=== PATIENT | female | born 1955 | race Caucasian/White ===

== ENCOUNTER 2022-02-13 17:16 | Inpatient (IN) ==
[2022-02-13] MEDS ORDERED: SODIUM CHLORIDE 0.9% 1000ML 500 ML IV ONE (17:31)
--- NOTE | 2022-02-13 17:36 | Emergency Department Note ---
Impression & Plan Bilateral pulmonary embolism ED Provider Note Name: KEYLA PRUETT Age: 67 Sex: F Arrives Via: Walk-In Informant: Patient ED Provider: Rei Ortega MD Chief Complaint: Flank pain Impression: As per impressions above Medical Decision Making: Pleasant 67-year-old female with a history of anxiety/depression, dyslipidemia and a remote history of a PE following surgery 8 years ago. She arrives for evaluation of worsening right flank pain. On examination pain seems to be slightly higher than typical flank area and she does appear somewhat dyspneic/tachypneic. In the setting of recent travel back and forth to [place] I did feel that getting a CT PE study was warranted and will get CT of the abdomen pelvis along with this to rule out other acute findings. She fortunately is not hypoxic, hypotensive and is only mildly tachycardic with exertion. Labs are essentially unremarkable. CT does show what appears to be extensive clot burden but no clear evidence of heart strain per her report. Given the extensive findings I do feel that she would require hospitalization. She has no recent headache, head injury, black/bloody stools, epigastric disco mfort, GI bleed history or any other concerning bleeding risk. Patient is agreeable to starting heparin and understands the risks of doing so as well as options otherwise. I did get a hypercoagulable work-up on her as this is now the second time she has had PEs. Hospitalist was consulted for further management patient stable at time of hospitalization. I do not feel that she is a candidate for TNKase at this time given how currently stable she has. The CT of the abdomen pelvis does reveal some mild hydro on the right and questionable stone in the right lower pelvis. I think it is unlikely that this is acute renal colic secondary to ureteral stone in the setting of she clearly has massive PEs that are most likely cause of her discomfort. Furthermore she has no blood in her urine which does make stone a little less likely. Prior Medical Record and Triage/Nursing Notes reviewed by Me Additional history obtained from chart Differentials:PE, renal colic, biliary dysfunction, aortic pathology, infection, ischemia of bowel or lung, diverticulitis, PUD/GERD, acs amongst other pathologies considered. Vital Signs: reviewed and remarkable for mild tachy Interventions: nss bolus, heparin bolus/gtt Labs:Reviewed and remarkable for no significant abnormalities Imaging:See radiologist read on chart for CT PE and CT abdomen pelvis studies. Extensive right and some left pulmonary emboli. Abdomen pelvis reveals possible distal right ureteral stone with mild hydro- Cardiac/Tele Monitoring: Cardiac Monitoring: An Order was placed for continuous cardiac monitoring. The monitor shows a rate of 98 with a normal sinus rhythm. Consults:Dr Angeline Roblero Hospitalist Plan: Disposition:Hospitalization. Condition: Good History of Present Illness:67-year-old female arrives for evaluation of right flank pain. When discussing she actually points to the right lower lateral patient states the pain has been going on for about 3 weeks gradually worsening. She notes pain is now radiating into her right shoulder. Associated with shortness of breath and pain is severely worse with any deep inspiration. She denies any falls, trauma, injuries. She denies any other chest pains. She states she has no abdominal pain or any radiation to groin, low back or pelvis. She denies any rashes, fevers, other concerning signs or symptoms. She had no recent falls or injuries. Pain does seem to be little bit worse with movement as well but primarily the issues deep inspiration. She does have a history of a PE 8 years ago is no longer on any blood thinners this was following surgery. He does take aspirin 81 mg daily. Rest makes better and inspiration makes w orse. No medications prior to arrival however she did use diclofenac this morning with improvement. ROS: See above HPI for pertinent positives & negatives. A total of 10 systems reviewed and were otherwise negative. Past Medical History:PE, anxiety/depression, dyslipidemia Past Surgical History:Gallbladder removal, amongst others Family History:Father an [place], mother had a stroke, brother had cancer Social History:Recently moved to the area, previous smoker Home Medications:See Below Allergies:nkda Vitals:Blood Pressure: 114/69, Pulse 98, RR 16, T 36.8, O2 94% on RA Physical Exam: GENERAL: Patient is uncomfortable appearing and in moderate distress. declines pain medications EYES: No scleral icterus, unremarkable pupils. ENT: Mucous membranes moist, no nasal congestion. NECK: No masses appreciated, nomeningismus, trachea is midline. RESPIRATORY: Moderate dyspnea/tachypnea. Clear to auscultation and equal bilaterally. No wheeze, no rhonchi. CARDIOVASCULAR: Regular rate and rhythm.No murmurs, rubs, gallops appreciated. GASTROINTESTINAL: Abdomen soft, non-tender, no peritonitis.Bowel sounds positive.No masses appreciated. BACK: No midline tenderness, no CVA tenderness EXTREMITIES: Normal motion all extremities, no cyanosis, no edema. NEUROLOGIC: Alert and oriented, no acute motor or sensory deficits, no focal weakness, cranial nerves grossly intact. SKIN: No rash, no jaundice, no diaphoresis. PSYCH: Appropriate GCS: 15 ED Course: Times/Reassessments: Patient stable throughout still a bit dyspneic/tachypneic and heart rate right around 100. Reviewed findings of CT and she is agreeable to starting anticoagulant understanding the risks of bleeding. Hospitalist was consulted for further management. Critical Care: I have personally spent 45 minutes of critical care time in the direct management of this patient. Bilateral extensive PEs requiring IV anticoagulation. This was a life/limb threatening event. This 45 minutes is in excess of all separately billable procedures. Rei Ortega MD Past Med/Surg History Medical History (Updated 02/14/22 @ 01:47 by Rei Ortega MD) Depression HLD (hyperlipidemia) Pulmonary embolism Small bowel obstruction x 3 last in 2018 Surgical History History of dilatation and curettage History of tubal ligation Hx of cholecystectomy Hx of colonoscopy Hx of hysterectomy Hx of sinus surgery Hx of tonsillectomy Family History Father , 52 - [place] Myocardial infarction Mother Stroke Brother Cancer brain cancer Social History (Updated 02/13/22 @ 20:31 by Chelsy Bolanos PA-C) Smoking Status: Former smoker Years Smoked: 25; Smoking End Date: 1996; Second Hand Exposure: No; Do You Dip or Chew Tobacco: No; Tobacco Cessation Education Requested by Patient: No Hx Alcohol Use: No Hx Substance Use: No Preferred Language: Portuguese Communication Ability: Effective Corporate Real Estate Manager Required: No Beliefs That Will Affect Care: Amish Amish Beliefs: Would like to see county court judge marital status: Current Living Situation: Spouse Current Living Situation Comment: single family home current occupational status: retired Feels Safe at Home: Yes Safety Concerns: Feels Safe At This Time Assistive Devices: Denture - Upper and Glasses Allergies Allergies Allergy/AdvReac Type Severity Reaction Status Date / Time No Known Allergies Allergy Verified 02/13/22 21:03 Home Meds Home Medications Medication Instructions Recorded Confirmed aspirin 81 mg tablet,delayed 81 mg PO DAILY 02/13/22 02/13/22 release atorvastatin 40 mg tablet 40 mg PO DAILY 02/13/22 02/13/22 beclomethasone dipropionate 80 2 spray intranasal DAILY 02/13/22 02/13/22 mcg/actuation nasal HFA inhaler (QNASL) citalopram 20 mg tablet 20 mg PO DAILY 02/13/22 02/13/22 diclofenac sodium 75 mg 75 mg PO BID 02/13/22 02/13/22 tablet,delayed release lactobacillus combination no.4 3 0 mmu cells PO DAILY 02/13/22 02/13/22 billion cell capsule (Probiotic) Results & Data (ED) Vital Signs Vital Signs - 24 hr 02/13/22 17:21 02/13/22 18:09 02/13/22 20:00 Temperature 36.8 C Temperature Source Temporal Artery Scan Pulse Rate 98 H Pulse Rate [Apical] 92 H 87 Pulse Rhythm [Apical] Regular Respiratory Rate 16 16 18 Respiratory Effort / Characteristics Non-Labored Non-Labored Spontaneous Respiratory Depth Normal Normal Respiratory Pattern Regular Blood Pressure 114/69 Blood Pressure [Left Arm] 150/78 H 142/79 H Blood Pressure Mean 84 Blood Pressure Mean [Left Arm] 102 100 Blood Pressure Position [Left Arm] Semi-fowlers Pulse Oximetry 94 97 94 Oxygen Delivery Method Room Air Room Air Room Air Sepsis Recent Fever Within 48 Hours No Sepsis New/Unexplained Change in Mental Status No Sepsis Action Taken by Nursing No Action Required Laboratory Data Result diagrams: 02/13/22 18:11 02/13/22 18:09 Lab Results 02/13/22 02/13/22 02/13/22 Range/Units 18:09 18:11 18:11 WBC 6.33 (4.8-10.8) K/ul RBC 4.75 (3.93-5.22) M/uL Hgb 13.7 (12.0-16.0) g/dl Hct 42.2 (34.1-44.9) % MCV 88.8 (80.0-100.0) fL MCH 28.8 (25.0-34.0) pg MCHC 32.5 (32.0-36.0) g/dL RDW Std Deviation 47.3 H (36.4-46.3) fL RDW Coeff of Erick 14.5 (11.5-14.5) % Plt Count 224 (130-400) K/uL MPV 9.8 (9.4-12.3) fL Immature Gran % (Auto) 0.8 % Neut % (Auto) 66.3 % Lymph % (Auto) 21.6 % [place] % (Auto) 9.0 % Eos % (Auto) 1.7 % Baso % (Auto) 0.6 % Neut # (Auto) 4.19 (1.4-6.5) K/uL Lymph # (Auto) 1.37 (1.2-3.4) K/uL [place] # (Auto) 0.57 (0.24-0.82) K/uL Eos # (Auto) 0.11 (0-0.50) K/uL Baso # (Auto) 0.04 (0-0.2) K/uL Immature Gran # (Auto) 0.05 H (0.00-0.02) K/uL PT (9.0-12.0) Seconds INR (0.9-1.1) APTT (21.0-31.0) Seconds PTT Ratio Sodium 135 L (136-145) mmol/L Potassium 4.1 (3.5-5.1) mmol/L Chloride 102 (98-107) mmol/L Carbon Dioxide 26 (21-32) mmol/L Anion Gap 7 (3-11) BUN 17 (6-23) mg/dl Creatinine 0.91 (0.6-1.2) mg/dl Est Cr Clr Drug Dosing 69.4 ml/min Est GFR ( Amer) 76.2 ml/min Est GFR (Non-Af Amer) 65.7 ml/min BUN/Creatinine Ratio 18.7 (10-20) Glucose 88 (70-99(Fasting)) mg/dl Calcium 9.8 (8.5-10.1) mg/dl Magnesium 2.1 (1.7-2.4) mg/dl Total Bilirubin 0.7 (0.2-1.0) mg/dl Direct Bilirubin 0.0 (0-0.2) mg/dl AST 26 (13-39) U/L ALT 18 (7-52) U/L Alkaline Phosphatase 72 (34-104) U/L Troponin I High Sens 4.5 (0-14) pg/ml Total Protein 7.7 (6.0-8.3) gm/dl Albumin 4.1 (3.4-5.0) gm/dl Lipase 35 (11-82) U/L Urine Color Yellow Urine Appearance Clear (Clear) Urine pH 5.5 (4.5-7.5) Ur Specific [place] 1.016 (1.000-1.030) Urine Protein Negative (Negative) Urine Glucose (UA) Negative (Negative) Urine Ketones Negative (Negative) Urine Blood Negative (Negative) Urine Nitrite Negative (Negative) Urine Bilirubin Negative (Negative) Urine Urobilinogen Negative (Negative) Ur Leukocyte Esterase 2+ H (Negative) Urine WBC (Auto) 10-30 H (0-5) /hpf Urine RBC (Auto) 0-4 (0-4) /hpf U Hyaline Cast (Auto) 0 (0-5) /lpf U Epithel Cells (Auto) 10-20 H (0-5) /lpf Urine Bacteria (Auto) Negative (Negative) SARS-CoV-2, RNA, NAAT (NEGATIVE) 02/13/22 02/13/22 Range/Units 20:34 21:26 WBC (4.8-10.8) K/ul RBC (3.93-5.22) M/uL Hgb (12.0-16.0) g/dl Hct (34.1-44.9) % MCV (80.0-100.0) fL MCH (25.0-34.0) pg MCHC (32.0-36.0) g/dL RDW Std Deviation (36.4-46.3) fL RDW Coeff of Erick (11.5-14.5) % Plt Count (130-400) K/uL MPV (9.4-12.3) fL Immature Gran % (Auto) % Neut % (Auto) % Lymph % (Auto) % [place] % (Auto) % Eos % (Auto) % Baso % (Auto) % Neut # (Auto) (1.4-6.5) K/uL Lymph # (Auto) (1.2-3.4) K/uL [place] # (Auto) (0.24-0.82) K/uL Eos # (Auto) (0-0.50) K/uL Baso # (Auto) (0-0.2) K/uL Immature Gran # (Auto) (0.00-0.02) K/uL PT 10.5 (9.0-12.0) Seconds INR 1.0 (0.9-1.1) APTT 25.6 (21.0-31.0) Seconds PTT Ratio 0.9 Sodium (136-145) mmol/L Potassium (3.5-5.1) mmol/L Chloride (98-107) mmol/L Carbon Dioxide (21-32) mmol/L Anion Gap (3-11) BUN (6-23) mg/dl Creatinine (0.6-1.2) mg/dl Est Cr Clr Drug Dosing ml/min Est GFR ( Amer) ml/min Est GFR (Non-Af Amer) ml/min BUN/Creatinine Ratio (10-20) Glucose (70-99(Fasting)) mg/dl Calcium (8.5-10.1) mg/dl Magnesium (1.7-2.4) mg/dl Total Bilirubin (0.2-1.0) mg/dl Direct Bilirubin (0-0.2) mg/dl AST (13-39) U/L ALT (7-52) U/L Alkaline Phosphatase (34-104) U/L Troponin I High Sens (0-14) pg/ml Total Protein (6.0-8.3) gm/dl Albumin (3.4-5.0) gm/dl Lipase (11-82) U/L Urine Color Urine Appearance (Clear) Urine pH (4.5-7.5) Ur Specific [place] (1.000-1.030) Urine Protein (Negative) Urine Glucose (UA) (Negative) Urine Ketones (Negative) Urine Blood (Negative) Urine Nitrite (Negative) Urine Bilirubin (Negative) Urine Urobilinogen (Negative) Ur Leukocyte Esterase (Negative) Urine WBC (Auto) (0-5) /hpf Urine RBC (Auto) (0-4) /hpf U Hyaline Cast (Auto) (0-5) /lpf U Epithel Cells (Auto) (0-5) /lpf Urine Bacteria (Auto) (Negative) SARS-CoV-2, RNA, NAAT NEGATIVE (NEGATIVE) Administered Medications Discontinued Medications Acetaminophen (Acetaminophen 325 Mg Tab) 650 mg PO NOW STA Stop: 02/13/22 21:26 Last Admin: 02/13/22 21:51 Dose: 650 mg Documented By: XIMENA Enoxaparin Sodium (Enoxaparin 100 Mg/1ml Syr) 100 mg SQ NOW ONE Stop: 02/13/22 21:25 Last Admin: 02/13/22 21:51 Dose: 100 mg Documented By: XIMENA Heparin Sodium (Porcine) (Heparin Sod (Porcine) 1000 Unit/Ml) 1 units IV NOW ONE Stop: 02/13/22 20:18 Last Admin: 02/13/22 22:04 Dose: Not Given Documented By: XIMENA Heparin Sodium/Dextrose (Heparin Iv Adult Wt-Based Standard With Bolus Protocol) 1 each IV NOW STA; Protocol Stop: 02/13/22 20:03 Last Admin: 02/13/22 22:04 Dose: Not Given Documented By: XIMENA Sodium Chloride (Nss 1000ml) 500 mls @ 999 mls/hr IV .Q31M ONE Stop: 02/13/22 18:01 Last Infusion: 02/13/22 19:48 Dose: 0 mls/hr Documented By: Admin: 02/13/22 19:17 Dose: 999 mls/hr Documented By: XIMENA Heparin Sodium/Dextrose (Heparin Sodium/Dextrose) 25,000 units in 500 mls @ 26 mls/hr IV .[id number] [facility]; Protocol Stop: 03/15/22 20:29 Last Admin: 02/13/22 22:04 Dose: Not Given Documented By: XIMENA Ioversol (Optiray 300 500ml) 114 ml IV ONCE ONE Stop: 02/13/22 19:33 Last Admin: 02/13/22 19:35 Dose: 114 ml Documented By: YEN Imaging Data Radiologist's Impression: Abdomen/Pelvis CT 02/13/22 17:31 CT abd pelvis IV con only CLINICAL HISTORY: right flank pain radiates to shoulder and back COMPARISON STUDY: No previous studies for comparison. CT DOSE: 1609.23 mGy.cm TECHNIQUE: Standard CT of the Abdomen and Pelvis was performed with IV contrast. A dose lowering technique was utilized adhering to the principles of ALARA. Contrast Volume: Optiray 320, 114 ml. The patient did not receive oral contrast. FINDINGS: Lung base: There is atelectasis at the right lung base. There is associated intraluminal thrombi present within the main right lower lobe pulmonary artery and the peripheral branches of the right lower lobe. Findings represent pulmonary emboli. There is no evidence for right heart strain. Abdominal cavity: There is no evidence for abdominal mass, adenopathy or ascites. Liver: There is homogeneous attenuation of the liver parenchyma. There is no evidence for enhancing mass lesion. Spleen: There is homogeneous attenuation of the splenic parenchyma. There is no enhancing mass lesion. Pancreas: There is homogeneous attenuation of the pancreatic parenchyma. There is no evidence for mass lesion or peripancreatic fluid collection. Gall Bladder: Surgical clips are present. Adrenal glands: The adrenal glands are normal in size and attenuation. There is no evidence for enhancing mass lesion. Kidneys: There is homogeneous attenuation of the renal parenchyma bilaterally. There is no evidence for renal calculus or hydronephrosis. There is no evidence for enhancing mass. However, there is hydroureter present on the right with vague calcification seen in the region of the right UVJ. The presence of a distal right ureteral calculus cannot be completely excluded based on this study. There is also a sharply defined right renal cyst. Bowel: The bowel loops are normally placed within the abdomen and pelvis without evidence for dilatation or obstruction. There is no evidence for mass lesion. There is mild diverticulosis without evidence for diverticulitis. There are no inflammatory changes present. There is no evidence for free air. Bladder: The bladder is within normal limits with no evidence for focal mass, calculus or diverticulum. : There is no evidence for pelvic mass or adenopathy. There is no evidence for pelvic ascites. Vasculature: There is no evidence for aneurysmal dilatation of the abdominal aorta. Osseous structures: There is no acute osseous pathology. IMPRESSION: 1. Extensive pulmonary emboli involving the main right lower lobe pulmonary artery and its peripheral branches. 2. Associated right basilar atelectasis. 3. Mild hydroureter on the right with calcification seen in the region of the right UVJ suspicious for distal ureteral calculus. 4. No other renal or ureteral calculi. 5. Additional nonacute findings are delineated above. ACT 112: Negative or not required by law. Electronically signed by: Francisco Cardona M.D. 02/13/2022 7:55 PM Chest CTA 02/13/22 17:31 CT angio chest PE protocol CLINICAL HISTORY: Right flank pain to shoulder, h/o PE, recent trave COMPARISON STUDY: No previous studies for comparison. CT DOSE: TECHNIQUE: CT Angio of the chest was performed.followed by image post processing with coronal, and sagittal MIP reformats. Contrast Volume: Optiray 320, 114 ml FINDINGS: Vasculature: There is a large intraluminal thrombus present within the right main pulmonary artery with numerous emboli extending into the right lower lobe pulmonary artery branches. Additional emboli are seen within the left upper lobe pulmonary arteries.. Airway: The airway is clear. No endobronchial lesion is identified. Lungs: There is associated right basilar atelectasis. The lungs are otherwise clear of acute alveolar opacities, air bronchograms or pulmonary nodules. Pleura: There is no evidence for pleural effusion. There is no evidence for pneumothorax. Mediastinum: There is no evidence for pathologic adenopathy. There is no evidence for right heart strain. The heart size is within normal limits. The thoracic aorta is within normal limits. There is no evidence for pericardial effusion. Osseous structures: There is no acute osseous pathology. Impression: 1. Positive CTA for extensive right lower lobe and also left upper lobe pulmonary emboli. 2. Associated right basilar atelectasis. 3. No evidence for right heart strain. ACT 112: Negative or not required by law. Electronically signed by: Francisco Cardona M.D. 02/13/2022 7:59 PM Discharge Plan Visit Data Chief Complaint: Flank Pain Stated Complaint: R SIDE FLANK PAIN ED Provider: Rei Ortega Discharge Problem: Bilateral pulmonary embolism Patient Disposition: Admitted As Inpatient Discharge Instructions Interventions: ED Discharge Assessment Last Done: 02/13/22 22:45
[2022-02-13 18:24] LABS: Basophils # (auto) 0.04 K/uL (0-0.2); Basophils % (auto) 0.6 %; Eosinophils # (auto) 0.11 K/uL (0-0.50); Eosinophils % (auto) 1.7 %; Hematocrit (blood only) 42.2 % (34.1-44.9); Hemoglobin 13.7 g/dl (12.0-16.0); Immature Granulocytes # (auto) 0.05 K/uL (0.00-0.02); Immature Granulocytes % (auto) 0.8 %; Lymphocytes # (auto) 1.37 K/uL (1.2-3.4); Lymphocytes % (auto) 21.6 %; Mean Corpuscular Hemoglobin 28.8 pg (25.0-34.0); Mean Corpuscular Hgb Conc 32.5 g/dL (32.0-36.0); Mean Corpuscular Volume 88.8 fL (80.0-100.0); Mean Platelet Volume 9.8 fL (9.4-12.3); Monocytes # (auto) 0.57 K/uL (0.24-0.82); Neutrophils # (auto) 4.19 K/uL (1.4-6.5); Neutrophils % (auto) 66.3 %; Platelet Count 224 K/uL (130-400); RDW Coefficient of Variation 14.5 % (11.5-14.5); RDW Standard Deviation 47.3 fL (36.4-46.3); Red Blood Count 4.75 M/uL (3.93-5.22); White Blood Count 6.33 K/ul (4.8-10.8)
[2022-02-13 18:35] LABS: Appearance Urine Clear (Clear); Bacteria Urine Automated Negative (Negative); Bilirubin Urine Negative (Negative); Blood Urine Negative (Negative); Cast Urine Automated 0 /lpf (0-5); Color Urine Yellow; Glucose Urine UA Negative (Negative); Ketones Urine Negative (Negative); Leukocyte Esterase Urine 2+ (Negative); Nitrite Urine Negative (Negative); Protein Urine Negative (Negative); RBC Urine Automated 0-4 /hpf (0-4); Specific Gravity Urine 1.016 (1.000-1.030); Urobilinogen Urine Negative (Negative); pH Urine 5.5 (4.5-7.5)
[2022-02-13 18:55] LABS: Troponin I High Sensitivity 4.5 pg/ml (0-14)
[2022-02-13 18:57] LABS: Albumin Level 4.1 gm/dl (3.4-5.0); BUN Creatinine Ratio 18.7 (10-20); Bilirubin,Total 0.7 mg/dl (0.2-1.0); Calcium 9.8 mg/dl (8.5-10.1); Creatinine Clr Calc Pharmacy 69.4 ml/min; Est GFR (African American) 76.2 ml/min; Est GFR (Non-African American) 65.7 ml/min; Magnesium 2.1 mg/dl (1.7-2.4); Potassium 4.1 mmol/L (3.5-5.1); Total Protein 7.7 gm/dl (6.0-8.3)
[2022-02-13] MEDS ORDERED: OPTIRAY 300 500mL IV ONE (19:32)
--- NOTE | 2022-02-13 19:57 | CT Scan Report ---
CT abd pelvis IV con only CLINICAL HISTORY: right flank pain radiates to shoulder and back COMPARISON STUDY: No previous studies for comparison. CT DOSE: 1609.23 mGy.cm TECHNIQUE: Standard CT of the Abdomen and Pelvis was performed with IV contrast. A dose lowering ernesto hnique was utilized adhering to the principles of ALARA. Contrast Volume: Optiray 320, 114 ml. The patient did not receive oral contrast. FINDINGS: Lung base: There is atelectasis at the right lung base. There is associated intraluminal thrombi pres ent within the main right lower lobe pulmonary artery and the peripheral branches of the right lower lobe. Findings represent pulmonary emboli. There is no evidence for right heart strain. Abdominal cavity: There is no evidence for abdominal mass, adenopathy or ascites. Liver: There is homogeneous attenuation of the liver parenchyma. There is no evidence for enhancing m ass lesion. Spleen: There is homogeneous attenuation of the splenic parenchyma. There is no enhancing mass lesion . Pancreas: There is homogeneous attenuation of the pancreatic parenchyma. There is no evidence for mas s lesion or peripancreatic fluid collection. Gall Bladder: Surgical clips are present. Adrenal glands: The adrenal glands are normal in size and attenuation. There is no evidence for enhan cing mass lesion. Kidneys: There is homogeneous attenuation of the renal parenchyma bilaterally. There is no evidence f or renal calculus or hydronephrosis. There is no evidence for enhancing mass. However, there is hydro ureter present on the right with vague calcification seen in the region of the right UVJ. The presenc e of a distal right ureteral calculus cannot be completely excluded based on this study. There is als o a sharply defined right renal cyst. Bowel: The bowel loops are normally placed within the abdomen and pelvis without evidence for dilatat ion or obstruction. There is no evidence for mass lesion. There is mild diverticulosis without eviden ce for diverticulitis. There are no inflammatory changes present. There is no evidence for free air. Bladder: The bladder is within normal limits with no evidence for focal mass, calculus or diverticulu m. : There is no evidence for pelvic mass or adenopathy. There is no evidence for pelvic ascites. Vasculature: There is no evidence for aneurysmal dilatation of the abdominal aorta. Osseous structures: There is no acute osseous pathology. IMPRESSION: 1. Extensive pulmonary emboli involving the main right lower lobe pulmonary artery and its peripheral branches. 2. Associated right basilar atelectasis. 3. Mild hydroureter on the right with calcification seen in the region of the right UVJ suspicious fo r distal ureteral calculus. 4. No other renal or ureteral calculi. 5. Additional nonacute findings are delineated above. ACT 112: Negative or not required by law. Electronically signed by: Francisco Cardona M.D. 02/13/2022 7:55 PM
--- NOTE | 2022-02-13 20:01 | CT Scan Report ---
CT angio chest PE protocol CLINICAL HISTORY: Right flank pain to shoulder, h/o PE, recent trave COMPARISON STUDY: No previous studies for comparison. CT DOSE: TECHNIQUE: CT Angio of the chest was performed.followed by image post processing with coronal, and s agittal MIP reformats. Contrast Volume: Optiray 320, 114 ml FINDINGS: Vasculature: There is a large intraluminal thrombus present within the right main pulmonary artery wi th numerous emboli extending into the right lower lobe pulmonary artery branches. Additional emboli a re seen within the left upper lobe pulmonary arteries.. Airway: The airway is clear. No endobronchial lesion is identified. Lungs: There is associated right basilar atelectasis. The lungs are otherwise clear of acute alveolar opacities, air bronchograms or pulmonary nodules. Pleura: There is no evidence for pleural effusion. There is no evidence for pneumothorax. Mediastinum: There is no evidence for pathologic adenopathy. There is no evidence for right heart str ain. The heart size is within normal limits. The thoracic aorta is within normal limits. There is no evidence for pericardial effusion. Osseous structures: There is no acute osseous pathology. Impression: 1. Positive CTA for extensive right lower lobe and also left upper lobe pulmonary emboli. 2. Associated right basilar atelectasis. 3. No evidence for right heart strain. ACT 112: Negative or not required by law. Electronically signed by: Francisco Cardona M.D. 02/13/2022 7:59 PM
[2022-02-13] MEDS ORDERED: Heparin IV Adult Wt-Based Standard WITH Bolus Protocol IV STA (20:02)
[2022-02-13] MEDS ORDERED: Heparin IV Adult Wt-Based Standard WITH Bolus Protocol IV SCH (20:15)
[2022-02-13] MEDS ORDERED: HEPARIN SOD (PORCINE) 1000 UNIT/ML IV ONE (20:17)
[2022-02-13] MEDS ORDERED: HEPARIN SODIUM/DEXTROSE 25,000 UNITS/500 ML BAG IV SCH (20:30)
--- NOTE | 2022-02-13 20:57 | History & Physical Report ---
Date of Service February 13, 2022 Assessment & Plan (1) Pulmonary embolism: (2) Calculus of ureterovesical junction (UVJ): (3) Elevated blood pressure reading: (4) HLD (hyperlipidemia): (5) Depression: Plan This is a 67-year-old female who has a significant past medical history of pulmonary embolism treated with Xarelto after undergoing total vaginal hysterectomy and BSO and just stopping hormone replacement therapy, small bowel obstruction x4 secondary to adhesions, depression and HLD who presents to ED after experiencing right lateral chest wall pain off and on for 2 weeks. CTA Chest Shows extensive right lower lobe and left upper lobe pulmonary emboli. CT abdomen pelvis also show mild to hydroureter and right distal UVJ calculus. Prior history of PE was back approximately 2017, felt to be provoked as it was after having a TVH BSO and being on estrogen for 10 years. She was treated with Xarelto and then discontinued after 6 months. No known family history of DVT or PE. She has had recent travel back and forth to [place] approximately 14 times due to a recent move to the area. Each trip was 3 hours in length. She was started on IV heparin in ED. Please refer to Dr. Marcus Addendum for details regarding plan. Jose Bolanos PA-C History of Present Illness Chief Complaint: R lateral chest wall pain off and on x 2 weeks. Primary Care Provider: Cassy Nicole MD This is a 67-year-old female who has a significant past medical history of pulmonary embolism treated with Xarelto after undergoing total vaginal hysterectomy and BSO and just stopping hormone replacement therapy, small bowel obstruction x4 secondary to adhesions, depression and HLD who presents to ED after experiencing right lateral chest wall pain off and on for 2 weeks. Patient complains of right upper lateral chest wall pain that initially started about 2 weeks ago. It came on all of a sudden and was described as stabbing and rated as an 8 out of 10. It would be made worse with movement and deep breathing. Nothing would make it better and it would resolve on its own. She then went a period of about a week without any symptoms and over the last week has noticed increasing pain specifically over the last 2 days. Today pain became so severe and unrelenting she came to ED. She tried nothing [id number] for her pain. It does not feel similar to her prior blood clot. She has never experienced anything like this in the past. Pain does not radiate anywhere. When pain comes on she does overall feel clammy and nauseous. She denies any radhames fever, chills, sweats, lightheadedness, dizziness, syncope, chest pain, shortness with at rest, cough, hemoptysis, emesis, abdominal pain, dysuria, increased urgency or frequency with urination, melena or hematochezia. She does feel short of breath with exertion and having difficulty taking a big deep breath. She has never been tested for any clotting disorder and denies any known family history of clotting disorder. Her last pulmonary embolism was felt to be provoked secondary to recent surgery. She did recently moved to the area approximately 3 weeks ago made 14 trips back and forth from [place] to move to the area. Each trip one-way was approximately 3 hours. She denies any recent illness. In ED patient remained hemodynamically stable. Blood pressure was mildly elevated at 150/78 and heart rate 92. Chest CTA reveals extensive right lower lobe and left upper lobe pulmonary emboli. No evidence of right heart strain. CT abdomen pelvis also reveals mild hydroureter on the right with calcification seen in the region of the right UVJ suspicious for distal ureteral calculus. A hypercoagulable panel was obtained. She was started on IV heparin. Of significance she is up-to-date on all her routine cancer screenings including colonoscopy and mammogram. She requires no cervical screening secondary to total abdominal hysterectomy and BSO. Allergies Allergy/AdvReac Type Severity Reaction Status Date / Time No Known Allergies Allergy Verified 02/13/22 21:03 Home Medications Medication Instructions Recorded Confirmed Type aspirin 81 mg tablet,delayed 81 mg PO DAILY 02/13/22 02/13/22 History release atorvastatin 40 mg tablet 40 mg PO DAILY 02/13/22 02/13/22 History beclomethasone dipropionate 80 2 spray intranasal DAILY 02/13/22 02/13/22 History mcg/actuation nasal HFA inhaler (QNASL) citalopram 20 mg tablet 20 mg PO DAILY 02/13/22 02/13/22 History diclofenac sodium 75 mg 75 mg PO BID 02/13/22 02/13/22 History tablet,delayed release lactobacillus combination no.4 3 0 mmu cells PO DAILY 02/13/22 02/13/22 History billion cell capsule (Probiotic) Past Med/Surg History Medical History (Updated 02/14/22 @ 01:47 by Rei Ortega MD) Depression HLD (hyperlipidemia) Pulmonary embolism Small bowel obstruction x 3 last in 2018 Surgical History History of dilatation and curettage History of tubal ligation Hx of cholecystectomy Hx of colonoscopy Hx of hysterectomy Hx of sinus surgery Hx of tonsillectomy Family History Father , 52 - [place] Myocardial infarction Mother Stroke Brother Cancer brain cancer Social History (Updated 02/13/22 @ 20:31 by Chelsy Bolanos PA-C) Smoking Status: Former smoker Years Smoked: 25; Smoking End Date: 1996; Second Hand Exposure: No; Do You Dip or Chew Tobacco: No; Tobacco Cessation Education Requested by Patient: No Hx Alcohol Use: No Hx Substance Use: No Preferred Language: Cymraes Communication Ability: Effective Rug 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 Required: No Beliefs That Will Affect Care: Adventism Adventism Beliefs: Would like to see art specialist marital status: Current Living Situation: Spouse Current Living Situation Comment: single family home current occupational status: retired Feels Safe at Home: Yes Safety Concerns: Feels Safe At This Time Assistive Devices: Denture - Upper and Glasses Review of Systems Review of Systems: All systems reviewed & are unremarkable except as noted in HPI & below Physical Exam Physical Exam: Constitutional: WD/WN, vitals as above, NAD, sitting up in bed, pleasant, conversing easily Head: Normocephalic, Atraumatic Eyes: PERRL, conjunctivae normal, anicteric sclerae ENMT: external ear and nose normal, oropharynx normal Neck: trachea midline, no thyromegaly normal visual inspection Respiratory: shallow breathing due to pain, normal respiratory effort, lungs clear to auscultation, no wheeze, rales, rhonchi. Normal insp/exp effort, no accessory muscle use Cardiovascular: RRR, no murmur, no edema but obese lower ext, Vessels: no JVD or carotid bruit Chest: normal inspection of chest Abdomen: normal bowel sounds, soft, nontender, no hepatosplenomegaly Musculoskeletal: no cyanosis or clubbing, extremities motor strength 5/5 Skin: no rashes, warm and dry normal turgor Neurologic: PERRL, EOMI, accommodation nl, no face palsy, no dysarthria CN's II-XI intact bilaterally and moves all extremities Psychiatric: A+Ox3, euthymic affect Lymphatic: no cervical or axillary lymphadenopathy : deferred Results & Data Results & Data ([facility]) Vital Signs (Past 12 Hours) Vital Signs Temp Pulse Pulse Resp BP BP Pulse Ox 02/13/22 18:09 92 H 16 150/78 H 97 02/13/22 17:21 36.8 C 98 H 16 114/69 94 O2 Del Method 02/13/22 18:09 Room Air 02/13/22 17:21 Room Air Diagnostic Findings Abdomen/Pelvis CT 02/13/22 17:31 CT abd pelvis IV con only CLINICAL HISTORY: right flank pain radiates to shoulder and back COMPARISON STUDY: No previous studies for comparison. CT DOSE: 1609.23 mGy.cm TECHNIQUE: Standard CT of the Abdomen and Pelvis was performed with IV contrast. A dose lowering technique was utilized adhering to the principles of ALARA. Contrast Volume: Optiray 320, 114 ml. The patient did not receive oral contrast. FINDINGS: Lung base: There is atelectasis at the right lung base. There is associated intraluminal thrombi present within the main right lower lobe pulmonary artery and the peripheral branches of the right lower lobe. Findings represent pulmonary emboli. There is no evidence for right heart strain. Abdominal cavity: There is no evidence for abdominal mass, adenopathy or ascites. Liver: There is homogeneous attenuation of the liver parenchyma. There is no evidence for enhancing mass lesion. Spleen: There is homogeneous attenuation of the splenic parenchyma. There is no enhancing mass lesion. Pancreas: There is homogeneous attenuation of the pancreatic parenchyma. There is no evidence for mass lesion or peripancreatic fluid collection. Gall Bladder: Surgical clips are present. Adrenal glands: The adrenal glands are normal in size and attenuation. There is no evidence for enhancing mass lesion. Kidneys: There is homogeneous attenuation of the renal parenchyma bilaterally. There is no evidence for renal calculus or hydronephrosis. There is no evidence for enhancing mass. However, there is hydroureter present on the right with vague calcification seen in the region of the right UVJ. The presence of a distal right ureteral calculus cannot be completely excluded based on this study. There is also a sharply defined right renal cyst. Bowel: The bowel loops are normally placed within the abdomen and pelvis without evidence for dilatation or obstruction. There is no evidence for mass lesion. There is mild diverticulosis without evidence for diverticulitis. There are no inflammatory changes present. There is no evidence for free air. Bladder: The bladder is within normal limits with no evidence for focal mass, calculus or diverticulum. : There is no evidence for pelvic mass or adenopathy. There is no evidence for pelvic ascites. Vasculature: There is no evidence for aneurysmal dilatation of the abdominal aorta. Osseous structures: There is no acute osseous pathology. IMPRESSION: 1. Extensive pulmonary emboli involving the main right lower lobe pulmonary artery and its peripheral branches. 2. Associated right basilar atelectasis. 3. Mild hydroureter on the right with calcification seen in the region of the right UVJ suspicious for distal ureteral calculus. 4. No other renal or ureteral calculi. 5. Additional nonacute findings are delineated above. ACT 112: Negative or not required by law. Electronically signed by: Francisco Cardona M.D. 02/13/2022 7:55 PM Chest CTA 02/13/22 17:31 CT angio chest PE protocol CLINICAL HISTORY: Right flank pain to shoulder, h/o PE, recent trave COMPARISON STUDY: No previous studies for comparison. CT DOSE: TECHNIQUE: CT Angio of the chest was performed.followed by image post processing with coronal, and sagittal MIP reformats. Contrast Volume: Optiray 320, 114 ml FINDINGS: Vasculature: There is a large intraluminal thrombus present within the right main pulmonary artery with numerous emboli extending into the right lower lobe pulmonary artery branches. Additional emboli are seen within the left upper lobe pulmonary arteries.. Airway: The airway is clear. No endobronchial lesion is identified. Lungs: There is associated right basilar atelectasis. The lungs are otherwise clear of acute alveolar opacities, air bronchograms or pulmonary nodules. Pleura: There is no evidence for pleural effusion. There is no evidence for pneumothorax. Mediastinum: There is no evidence for pathologic adenopathy. There is no evidence for right heart strain. The heart size is within normal limits. The thoracic aorta is within normal limits. There is no evidence for pericardial eff usion. Osseous structures: There is no acute osseous pathology. Impression: 1. Positive CTA for extensive right lower lobe and also left upper lobe pulmonary emboli. 2. Associated right basilar atelectasis. 3. No evidence for right heart strain. ACT 112: Negative or not required by law. Electronically signed by: Francisco Cadrona M.D. 02/13/2022 7:59 PM Medications Administered Medication List Discontinued Medications Sodium Chloride (Nss 1000ml) 500 mls @ 999 mls/hr IV .Q31M ONE Stop: 02/13/22 18:01 Last Infusion: 02/13/22 19:48 Dose: 0 mls/hr Documented By: Admin: 02/13/22 19:17 Dose: 999 mls/hr Documented By: XIMENA Ioversol (Optiray 300 500ml) 114 ml IV ONCE ONE Stop: 02/13/22 19:33 Last Admin: 02/13/22 19:35 Dose: 114 ml Documented By: YEN COVID-19 Results Results COVID-19 Adm Lab Results: RBC 4.38 M/uL (3.93-5.22) 02/14/22 WBC 4.85 K/ul (4.8-10.8) 02/14/22 Hgb 12.5 g/dl (12.0-16.0) 02/14/22 Hct 39.2 % (34.1-44.9) 02/14/22 Plt Count 194 K/uL (130-400) 02/14/22 Neutrophils (%) (Auto) 57.5 % 02/14/22 Lymphocytes (%) (Auto) 25.8 % 02/14/22 Monocytes # (Auto) 0.63 K/uL (0.24-0.82) 02/14/22 Eosinophils # (Auto) 0.10 K/uL (0-0.50) 02/14/22 Immature Granulocyte % (Auto) 0.8 % 02/14/22 Neutrophils # (Auto) 2.79 K/uL (1.4-6.5) 02/14/22 Lymphocytes # (Auto) 1.25 K/uL (1.2-3.4) 02/14/22 Monocytes # (Auto) 0.63 K/uL (0.24-0.82) 02/14/22 Eosinophils # (Auto) 0.10 K/uL (0-0.50) 02/14/22 Basophils # (Auto) 0.04 K/uL (0-0.2) 02/14/22 Immature Granulocyte # (Auto) 0.04 K/uL (0.00-0.02) H 02/14 Na 137 mmol/L (136-145) 02/14/22 K 4.1 mmol/L (3.5-5.1) 02/14/22 Cl 105 mmol/L (98-107) 02/14/22 CO2 27 mmol/L (21-32) 02/14/22 Anion Gap 5 (3-11) 02/14/22 BUN 13 mg/dl (6-23) 02/14/22 Creatinine 0.83 mg/dl (0.6-1.2) 02/14/22 BUN/Creatinine Ratio 15.7 (10-20) 02/14/22 Glucose Level 90 mg/dl (70-99(Fasting)) 02/14/22 Ca 9.3 mg/dl (8.5-10.1) 02/14/22 Total Bilirubin 0.7 mg/dl (0.2-1.0) 02/13/22 Direct Bilirubin 0.0 mg/dl (0-0.2) 02/13/22 AST/SGOT 26 U/L (13-39) 02/13/22 ALT/SGPT 18 U/L (7-52) 02/13/22 Alkaline Phosphatase 72 U/L (34-104) 02/13/22 Total Protein 7.7 gm/dl (6.0-8.3) 02/13/22 Albumin 4.1 gm/dl (3.4-5.0) 02/13/22 PTT 25.6 Seconds (21.0-31.0) 02/13/22 INR 1.0 (0.9-1.1) 02/13/22 SARS-CoV-2, RNA, NAAT NEGATIVE (NEGATIVE) 02/13/22 Code Status & VTE Plan Code Status FULL CODE Supervising Physician Co-Signing Physician Notes IM ATTENDING : Patient seen and examined. History obtained from patient and records. Preceding documentation by Ms. Chelsy Bolanos PA-C reviewed. FINAL ASSESSMENT AND PLAN as follows : Recurrent pulmonary embolism Past history PE attributed to surgery status post Xarelto Possible hypercoagulable state Rule out LE source as clot Hyperlipidemia on statin Rx Mood disorder, stable Medical telemetry Hypercoagulable work-up as ordered by ER provider Weight-based Lovenox for now Defer discussion regarding home anticoagulation with AM provider and patient. Patient has expressed interest in taking Xarelto which she has tolerated well in the past. Patient likely to remain on anticoagulation indefinitely given recurrent event. LE venous Dopplers rule out DVT DVT prophylaxis. Lovenox Full code Text document was generated using [employer] voice recognition software. It may contain grammatical or spelling errors. Kindly contact undersigned for clarification of any documentation item in question.
[2022-02-13 21:10] LABS: Partial Thromboplastin Ratio 0.9; Partial Thromboplastin Time 25.6 Seconds (21.0-31.0); Prothrombin Time 10.5 Seconds (9.0-12.0)
[2022-02-13] MEDS ORDERED: ENOXAPARIN 100 MG/1ML SYR SQ ONE (21:24)
[2022-02-13] MEDS ORDERED: ACETAMINOPHEN 325 MG TAB PO STA (21:25)
[2022-02-13] MEDS ORDERED: ACETAMINOPHEN 325 MG TAB PO PRN (23:13)
[2022-02-13] MEDS ORDERED: PROMETHAZINE HCL 12.5 MG in SODIUM CHLORIDE 0.9% 50 ML IV PRN (23:13)
[2022-02-14] MEDS: traMADol HCL 50 MG TABLET PO PRN ×2 (05:59→10:26)
[2022-02-14 07:10] LABS: Basophils # (auto) 0.04 K/uL (0-0.2); Basophils % (auto) 0.8 %; Eosinophils % (auto) 2.1 %; Hematocrit (blood only) 39.2 % (34.1-44.9); Hemoglobin 12.5 g/dl (12.0-16.0); Immature Granulocytes # (auto) 0.04 K/uL (0.00-0.02); Immature Granulocytes % (auto) 0.8 %; Lymphocytes # (auto) 1.25 K/uL (1.2-3.4); Lymphocytes % (auto) 25.8 %; Mean Corpuscular Hemoglobin 28.5 pg (25.0-34.0); Mean Corpuscular Hgb Conc 31.9 g/dL (32.0-36.0); Mean Corpuscular Volume 89.5 fL (80.0-100.0); Mean Platelet Volume 9.8 fL (9.4-12.3); Monocytes # (auto) 0.63 K/uL (0.24-0.82); Neutrophils # (auto) 2.79 K/uL (1.4-6.5); Neutrophils % (auto) 57.5 %; Platelet Count 194 K/uL (130-400); RDW Coefficient of Variation 14.4 % (11.5-14.5); RDW Standard Deviation 47.2 fL (36.4-46.3); Red Blood Count 4.38 M/uL (3.93-5.22); White Blood Count 4.85 K/ul (4.8-10.8)
[2022-02-14 07:31] LABS: BUN Creatinine Ratio 15.7 (10-20); Calcium 9.3 mg/dl (8.5-10.1); Creatinine Clr Calc Pharmacy 76.2 ml/min; Est GFR (African American) 85.2 ml/min; Est GFR (Non-African American) 73.5 ml/min; Potassium 4.1 mmol/L (3.5-5.1)
[2022-02-14] MEDS: ATORVASTATIN 40 MG TAB PO SCH (07:59)
[2022-02-14] MEDS: ADVANCED PROBIOTIC 1250 MG CAPSULE PO SCH (07:59)
[2022-02-14] MEDS: CITALOPRAM 20 MG TAB PO SCH (07:59)
[2022-02-14] MEDS: FLUTICASONE PROPIONATE NA SPR 16 GM BTL SCH (08:00)
[2022-02-14] MEDS ORDERED: ASPIRIN 81 MG ECTAB PO SCH (09:00)
[2022-02-14] MEDS ORDERED: BECLOMETHASONE DIPROPIONATE INTNAS SCH (09:00)
[2022-02-14] MEDS ORDERED: [UNRECOGNIZED DRUG - OTHER] INTNAS SCH (09:00)
--- NOTE | 2022-02-14 10:29 | Ultrasound Report ---
US venous doppler LE BI CLINICAL HISTORY: leg swelling TECHNIQUE: Bilateral lower extremity real-time compression venous ultrasound with Color Doppler imagi ng. Utilizing real-time ultrasonic imaging multiple real time high-resolution ultrasonic images with compression and noncompression maneuvers of the deep venous system in addition to color doppler imagi ng were performed from the common femoral vein through the proximal calf veins. COMPARISON: None available at the time of this dictation. FINDINGS: Currently there is normal compressibility of the deep venous system from the common femoral vein thro ugh the proximal calf veins. No superficial venous thrombosis is identified. Impression: No evidence of deep venous thrombus. ACT 112: Negative or not required by law. Electronically signed by: Chandan Bronson M.D. 02/14/2022 10:28 AM
[2022-02-14] MEDS: ENOXAPARIN 100 MG/1ML SYR SQ SCH ×2 (10:31→21:01)
[2022-02-14] MEDS ORDERED: oxyCODONE HCL IR 5 MG TAB (IMMEDIATE RELEASE) PO PRN (14:48)
[2022-02-14] MEDS ORDERED: KETOROLAC TROMETHAMINE 15 MG/ML VIAL IV ONE (14:48)
[2022-02-14] MEDS: ACETAMINOPHEN 500 MG TAB PO SCH ×2 (14:59→21:02)
--- NOTE | 2022-02-14 16:25 | Hospitalist Progress Note ---
Date of Service February 14, 2022 Assessment & Plan (1) Pulmonary embolism: Plan: Started on full dose Lovenox. She is having significant pain especially on the right consistent with either post thrombotic syndrome versus lung infarction. Tramadol has been ineffective. We will try Toradol now and progressed to oxycodone if needed. Continue Lovenox with plan to transition to Eliquis closer to discharge. She is hemodynamically stable and is not requiring oxygen. Pain control will be her goal. Of note there is no evidence of DVT in the leg although she did report a fall with a swelling in her right leg in the last couple of weeks. She also has a possible provocation with multiple trips to and from [place] for her recent move. She has traveled approximately 14 times [id number] with each trip 3 hours in length. Hold home ASA 81mg daily and hold home diclofenac. (2) HLD (hyperlipidemia): Plan: Chronic stable, continue statin per home regimen. (3) Depression: Plan: Chronic, stable, continue home SSRI. (4) DVT prophylaxis: Plan: Lovenox Full Code Dipso-to home in 2 days. Melina Patel DO [facility] Hospitalist Admission and Anticipated Discharge Date Admission Date: February 13, 2022 Subjective Patient is a 67-year-old female with a history of provoked blood clot many years ago who presents with an acute pulmonary embolus. She had a recent fall with a swelling in her right leg within the last 2 weeks. Other than that there are no known causes or provocations for creation of this blood clot. She has extensive pulmonary embolus in the right side and left sides of her lungs. She is currently reporting severe pain especially on the right side with radiation into the back. She is not requiring oxygen but is having pleuritic chest pain. She is otherwise doing well. Tramadol has been ineffective. We discussed pain control options, anticoagulation plan and overall care plan. was at bedside and all questions were answered. Review of Systems Review of Systems: All systems reviewed negative except as indicated above. Physical Exam Physical Exam: CONSTITUTIONAL: obese, vitals as above, generally well- appearing, mild distress with deep breaths. EYES: normal conjunctivae, no scleral icterus, ENT: external ear and nose normal, MMM NECK: trachea midline RESPIRATORY: clear to auscultation bilaterally, no crackles, rales or wheezes, normal respiratory effort CARDIOVASCULAR: regular rate and rhythm, S1 and 2 heard without murmurs, gallops or rubs, no JVD, no peripheral edema, CHEST: inspection of chest was normal GASTROINTESTINAL: soft, nontender, ND, no guarding MUSCULOSKELETAL: strength 5/5 throughout, head is normocephalic and atraumatic SKIN: warm and dry NEUROLOGIC: CN 2-12 grossly intact, no sensory deficit, normal cognition, normal speech, no tremor PSYCHIATRIC: alert cooperative and oriented to person, place and time. Euthymic mood, makes good eye contact, language grossly intact, recent and remote memory grossly intact. Results & Data Results & Data ([facility]) Vital Signs (Past 12 Hours) Vital Signs Temp Pulse Pulse Resp BP Pulse Ox O2 Del Method 02/14/22 15:10 90 02/14/22 11:54 37.1 C 75 16 109/75 94 Room Air 02/14/22 09:29 Room Air 02/14/22 08:34 65 02/14/22 08:30 37.0 C 75 16 116/66 93 Room Air Laboratory Results Short CBC 02/13/22 02/14/22 Range/Units 18:11 06:26 WBC 6.33 4.85 (4.8-10.8) K/ul Hgb 13.7 12.5 (12.0-16.0) g/dl Hct 42.2 39.2 (34.1-44.9) % Plt Count 224 194 (130-400) K/uL BMP 02/13/22 02/14/22 18:09 06:26 Sodium 135 L 137 Potassium 4.1 4.1 Chloride 102 105 Carbon Dioxide 26 27 BUN 17 13 Creatinine 0.91 0.83 Glucose 88 90 Calcium 9.8 9.3 Liver Function 02/13/22 Range/Units 18:09 Total Bilirubin 0.7 (0.2-1.0) mg/dl Direct Bilirubin 0.0 (0-0.2) mg/dl AST 26 (13-39) U/L ALT 18 (7-52) U/L Alkaline Phosphatase 72 (34-104) U/L Albumin 4.1 (3.4-5.0) gm/dl Urine 02/13/22 Range/Units 18:11 Urine Color Yellow Urine Appearance Clear (Clear) Urine pH 5.5 (4.5-7.5) Ur Specific [place] 1.016 (1.000-1.030) Urine Protein Negative (Negative) Urine Glucose (UA) Negative (Negative) Diagnostic Findings Venous Doppler Study 02/13/22 21:25 US venous doppler LE BI CLINICAL HISTORY: leg swelling TECHNIQUE: Bilateral lower extremity real-time compression venous ultrasound with Color Doppler imaging. Utilizing real-time ultrasonic imaging multiple real time high-resolution ultrasonic images with compression and noncompression maneuvers of the deep venous system in addition to color doppler imaging were performed from the common femoral vein through the proximal calf veins. COMPARISON: None available at the time of this dictation. FINDINGS: Currently there is normal compressibility of the deep venous system from the common femoral vein through the proximal calf veins. No superficial venous thrombosis is identified. Impression: No evidence of deep venous thrombus. ACT 112: Negative or not required by law. Electronically signed by: Chandan Bronson M.D. 02/14/2022 10:28 AM Medications Administered Current Inpatient Medications Acetaminophen (Acetaminophen 325 Mg Tab) 650 mg PO Q4H PRN PRN Reason: Pain or Fever Stop: 03/15/22 23:12 Acetaminophen (Acetaminophen 500 Mg Tab) 1,000 mg PO Q8 [facility] Stop: 03/16/22 14:59 Last Admin: 02/14/22 14:59 Dose: 1,000 mg Atorvastatin Calcium (Atorvastatin 40 Mg Tab) 40 mg PO DAILY PATRICIA Stop: 03/16/22 08:59 Last Admin: 02/14/22 07:59 Dose: 40 mg Citalopram Hydrobromide (Citalopram 20 Mg Tab) 20 mg PO DAILY PATRICIA Stop: 03/16/22 08:59 Last Admin: 02/14/22 07:59 Dose: 20 mg Enoxaparin Sodium (Enoxaparin 100 Mg/1ml Syr) 100 mg SQ Q12H PATRICIA Stop: 03/16/22 09:59 Last Admin: 02/14/22 10:31 Dose: 100 mg Fluticasone Propionate (Fluticasone Propionate Na Spr 16 Gm Btl) 2 sprays NA DAILY PATRICIA Stop: 03/16/22 08:59 Last Admin: 02/14/22 08:00 Dose: Not Given Promethazine HCl 12.5 mg/ (Sodium Chloride) 50.5 mls @ 202 mls/hr IV Q6H PRN PRN Reason: Nausea And Vomiting Stop: 03/15/22 23:12 Ketorolac Tromethamine (Ketorolac Tromethamine 15 Mg/Ml Vial) 15 mg IV Q6H PRN PRN Reason: Pain Stop: 02/19/22 19:59 Lactobacillus Acidophilus (Advanced Probiotic 1250 Mg Capsule) 2 cap PO DAILY PATRICIA Stop: 03/16/22 08:59 Last Admin: 02/14/22 07:59 Dose: 2 cap Oxycodone HCl (Oxycodone Hcl Ir 5 Mg Tab (Immediate Release)) 5 mg PO Q6H PRN PRN Reason: severe pain Stop: 02/28/22 14:47
[2022-02-15] MEDS: KETOROLAC TROMETHAMINE 15 MG/ML VIAL IV PRN ×3 (04:46→20:01)
[2022-02-15] MEDS: ACETAMINOPHEN 500 MG TAB PO SCH (06:52)
[2022-02-15] MEDS: CITALOPRAM 20 MG TAB PO SCH (08:09)
[2022-02-15] MEDS: ADVANCED PROBIOTIC 1250 MG CAPSULE PO SCH (08:09)
[2022-02-15] MEDS: ATORVASTATIN 40 MG TAB PO SCH (08:10)
[2022-02-15] MEDS: FLUTICASONE PROPIONATE NA SPR 16 GM BTL SCH (08:11)
[2022-02-15] MEDS ORDERED: FLUTICASONE PROPIONATE NA SPR 16 GM BTL PRN (08:37)
[2022-02-15 09:05] LABS: Hematocrit (blood only) 39.5 % (34.1-44.9); Hemoglobin 12.9 g/dl (12.0-16.0); Mean Corpuscular Hemoglobin 28.8 pg (25.0-34.0); Mean Corpuscular Hgb Conc 32.7 g/dL (32.0-36.0); Mean Corpuscular Volume 88.2 fL (80.0-100.0); Mean Platelet Volume 9.4 fL (9.4-12.3); Platelet Count 204 K/uL (130-400); RDW Coefficient of Variation 14.3 % (11.5-14.5); RDW Standard Deviation 46.1 fL (36.4-46.3); Red Blood Count 4.48 M/uL (3.93-5.22); White Blood Count 5.39 K/ul (4.8-10.8)
[2022-02-15 09:23] LABS: BUN Creatinine Ratio 15.8 (10-20); Calcium 9.4 mg/dl (8.5-10.1); Creatinine Clr Calc Pharmacy 66.7 ml/min; Est GFR (African American) 72.3 ml/min; Est GFR (Non-African American) 62.4 ml/min
[2022-02-15] MEDS: ENOXAPARIN 100 MG/1ML SYR SQ SCH (10:38)
--- NOTE | 2022-02-15 12:50 | Hospitalist Progress Note ---
Date of Service February 15, 2022 Assessment & Plan (1) Pulmonary embolism: Plan: Cont full dose Lovenox Will check apixaban coverage with her insurance Doing well with Toradol for pain as needed-->this is expected to improve Tylenol and oxycodone also available. Patient counseled on bleeding risk with added NSAID Add oxygen with development of hypoxia overnight ( 90% on room air). (2) HLD (hyperlipidemia): Plan: Chronic stable, continue statin per home regimen. (3) Depression: Plan: Chronic, stable, continue home SSRI. (4) DVT prophylaxis: Plan: Lovenox Full Code Dipso-to home when chest pain improves and she is able to walk around without oxygen. Melina Patel DO [facility] Hospitalist Admission and Anticipated Discharge Date Admission Date: February 13, 2022 Subjective Patient is a 67-year-old female with a history of provoked blood clot many years ago who presents with an acute pulmonary embolus. She had a recent fall with a swelling in her right leg within the last 2 weeks. Other than that there are no known causes or provocations for creation of this blood clot. She has extensive pulmonary embolus in the right side and left sides of her lungs. She is currently reporting severe pain especially on the right side with radiation into the back. Chest pain still present with stabbin quality to it Seems to be in right upper chest and still in her back She does feel improved and theToradol is helping her She notices the pain return when the medicine wears off O2 level has dropped slightly overnight, will add some oxygen at this time for support. She is otherwise doing well, denies cough, or worsening SOB Review of Systems Review of Systems: All systems reviewed negative except as indicated above. Physical Exam Physical Exam: CONSTITUTIONAL: obese, vitals as above, generally well- appearing,NAD EYES: normal conjunctivae, no scleral icterus, ENT: external ear and nose normal, MMM NECK: trachea midline RESPIRATORY: clear to auscultation bilaterally, no crackles, rales or wheezes, normal respiratory effort CARDIOVASCULAR: regular rate and rhythm, S1 and 2 heard without murmurs, gallops or rubs, no JVD, no peripheral edema, CHEST: inspection of chest was normal GASTROINTESTINAL: soft, nontender, ND, no guarding MUSCULOSKELETAL: strength 5/5 throughout, head is normocephalic and atraumatic SKIN: warm and dry NEUROLOGIC: CN 2-12 grossly intact, no sensory deficit, normal cognition, normal speech, no tremor PSYCHIATRIC: alert cooperative and oriented to person, place and time. Euthymic mood, makes good eye contact, language grossly intact, recent and remote memory grossly intact. Results & Data Results & Data ([facility]) Vital Signs (Past 12 Hours) Vital Signs Temp Pulse Pulse Resp BP Pulse Ox O2 Del Method 02/15/22 11:45 37.2 C 80 18 99/65 L 90 Room Air 02/15/22 09:55 Room Air 02/15/22 09:53 89 02/15/22 08:13 36.5 C 72 17 103/69 92 Room Air 02/15/22 04:25 36.9 C 71 18 107/67 91 Room Air 02/15/22 02:04 71 Laboratory Results Short CBC 02/15/22 Range/Units 08:57 WBC 5.39 (4.8-10.8) K/ul Hgb 12.9 (12.0-16.0) g/dl Hct 39.5 (34.1-44.9) % Plt Count 204 (130-400) K/uL [facility] 02/15/22 08:57 Sodium 136 Potassium 4.0 Chloride 105 Carbon Dioxide 27 BUN 15 Creatinine 0.95 Glucose 131 H Calcium 9.4 Medications Administered Current Inpatient Medications Acetaminophen (Acetaminophen 325 Mg Tab) 650 mg PO Q4H PRN PRN Reason: Pain or Fever Stop: 03/15/22 23:12 Atorvastatin Calcium (Atorvastatin 40 Mg Tab) 40 mg PO DAILY PATRICIA Stop: 03/16/22 08:59 Last Admin: 02/15/22 08:10 Dose: 40 mg Citalopram Hydrobromide (Citalopram 20 Mg Tab) 20 mg PO DAILY PATRICIA Stop: 03/16/22 08:59 Last Admin: 02/15/22 08:09 Dose: 20 mg Enoxaparin Sodium (Enoxaparin 100 Mg/1ml Syr) 100 mg SQ Q12H PATRICIA Stop: 03/16/22 09:59 Last Admin: 02/15/22 10:38 Dose: 100 mg Fluticasone Propionate (Fluticasone Propionate Na Spr 16 Gm Btl) 2 sprays NA DAILY PRN PRN Reason: Allergy Symptoms Stop: 03/16/22 08:59 Promethazine HCl 12.5 mg/ (Sodium Chloride) 50.5 mls @ 202 mls/hr IV Q6H PRN PRN Reason: Nausea And Vomiting Stop: 03/15/22 23:12 Ketorolac Tromethamine (Ketorolac Tromethamine 15 Mg/Ml Vial) 15 mg IV Q6H PRN PRN Reason: Pain Stop: 02/19/22 19:59 Last Admin: 02/15/22 10:42 Dose: 15 mg Lactobacillus Acidophilus (Advanced Probiotic 1250 Mg Capsule) 2 cap PO DAILY PATRICIA Stop: 03/16/22 08:59 Last Admin: 02/15/22 08:09 Dose: 2 cap Oxycodone HCl (Oxycodone Hcl Ir 5 Mg Tab (Immediate Release)) 5 mg PO Q6H PRN PRN Reason: severe pain Stop: 02/28/22 14:47
--- NOTE | 2022-02-15 13:28 | Electrocardiogram Report ---
Test Reason : Blood Pressure : / mmHG Vent. Rate : 078 BPM Atrial Rate : 078 BPM P-R Int : 190 ms QRS Dur : 078 ms QT Int : 366 ms P-R-T Axes : 051 000 051 degrees QTc Int : 417 ms Normal sinus rhythm Nonspecific T wave abnormality Abnormal ECG No previous ECGs available Confirmed by John Bull ([id number]) on 02/15/2022 1:27:34 PM Referred By: REFERRED SELF Confirmed By:John Bull
[2022-02-15 14:30] LABS: Basophils # (auto) 0.02 K/uL (0-0.2); Basophils % (auto) 0.4 %; Eosinophils # (auto) 0.11 K/uL (0-0.50); Eosinophils % (auto) 1.9 %; Hemoglobin 11.9 g/dl (12.0-16.0); Immature Granulocytes # (auto) 0.04 K/uL (0.00-0.02); Immature Granulocytes % (auto) 0.7 %; Lymphocytes # (auto) 1.16 K/uL (1.2-3.4); Lymphocytes % (auto) 20.5 %; Mean Corpuscular Hemoglobin 28.3 pg (25.0-34.0); Mean Corpuscular Hgb Conc 32.2 g/dL (32.0-36.0); Mean Corpuscular Volume 88.1 fL (80.0-100.0); Mean Platelet Volume 9.6 fL (9.4-12.3); Monocytes # (auto) 0.68 K/uL (0.24-0.82); Neutrophils # (auto) 3.65 K/uL (1.4-6.5); Neutrophils % (auto) 64.5 %; Platelet Count 205 K/uL (130-400); RDW Coefficient of Variation 14.3 % (11.5-14.5); RDW Standard Deviation 45.9 fL (36.4-46.3); White Blood Count 5.66 K/ul (4.8-10.8)
[2022-02-15 14:52] LABS: Partial Thromboplastin Ratio 1.3; Prothrombin Time 10.4 Seconds (9.0-12.0)
[2022-02-15] MEDS ORDERED: WARFARIN SOD 5 MG TAB PO SCH (16:00)
[2022-02-15] MEDS ORDERED: Heparin IV Adult Wt-Based Standard *NO* Bolus Protocol IV ONE (20:00)
[2022-02-15] MEDS: HEPARIN SODIUM/DEXTROSE 25,000 UNITS/500 ML BAG IV SCH (20:07)
[2022-02-15] MEDS ORDERED: POLYETHYLENE (MIRALAX) 17 GM PACK PO STA (23:17)
[2022-02-15] MEDS ORDERED: POLYETHYLENE (MIRALAX) 17 GM PACK PO PRN (23:17)
[2022-02-15] MEDS: DOCUSATE SODIUM/SENNA 50/8.6MG TAB PO SCH (23:42)
[2022-02-16 02:56] LABS: Partial Thromboplastin Ratio 2.8
[2022-02-16 03:11] LABS: Partial Thromboplastin Time 77.2 Seconds (21.0-31.0)
[2022-02-16] MEDS: KETOROLAC TROMETHAMINE 15 MG/ML VIAL IV PRN ×2 (06:30→14:30)
[2022-02-16] MEDS: ATORVASTATIN 40 MG TAB PO SCH (08:03)
[2022-02-16] MEDS: ADVANCED PROBIOTIC 1250 MG CAPSULE PO SCH (08:03)
[2022-02-16] MEDS: CITALOPRAM 20 MG TAB PO SCH (08:03)
[2022-02-16 10:18] LABS: Prothrombin Time 10.7 Seconds (9.0-12.0)
[2022-02-16 10:34] LABS: Partial Thromboplastin Time 82.2 Seconds (21.0-31.0)
--- NOTE | 2022-02-16 13:46 | Hospitalist Progress Note ---
Date of Service February 16, 2022 Assessment & Plan (1) Pulmonary embolism: Plan: Cont heparin drip Will plan to switch to Xarelto after researching with her insurance. She prefers not to be on coumadin and will pay the high deductible for the NOAC. Doing well with Toradol for pain as needed-->this is improving Tylenol and oxycodone also available. Patient counseled on bleeding risk with added NSAID Add oxygen with development of hypoxia overnight ( 90% on room air). CXR findings concerning for developing pulmonary infarctions-consulted pulm No clinical evidence of infection at this point, so will hold off on abx. (2) HLD (hyperlipidemia): Plan: Chronic stable, continue statin per home regimen. (3) Depression: Plan: Chronic, stable, continue home SSRI. (4) DVT prophylaxis: Plan: Heparin Full Code Dipso-to home pending clinical improvement and pulmonary recommendations. Melina Patel DO [facility] Hospitalist Admission and Anticipated Discharge Date Admission Date: February 13, 2022 Subjective Patient is a 67-year-old female with a history of provoked blood clot many years ago who presents with an acute pulmonary embolus. She had a recent fall with a swelling in her right leg within the last 2 weeks. Other than that there are no known causes or provocations for creation of this blood clot. She has extensive pulmonary embolus in the right side and left sides of her lungs. She is currently reporting severe pain especially on the right side with radiation into the back. Chest pain still present with stabbing quality to it Toradol is helping Pain has been shifting and is overall improved. Seems to be in right upper chest and still in her back Feels some support from the oxygen She is otherwise doing well, denies cough, or worsening SOB Denies fevers CXR reveals dependent consolidation, possibly consistent with developing pulmonary infarctions. Review of Systems Review of Systems: All systems reviewed negative except as indicated above. Physical Exam Physical Exam: CONSTITUTIONAL: obese, vitals as above, generally well- appearing,NAD EYES: normal conjunctivae, no scleral icterus, ENT: external ear and nose normal, MMM NECK: trachea midline RESPIRATORY: clear to auscultation bilaterally, no crackles, rales or wheezes, normal respiratory effort CARDIOVASCULAR: regular rate and rhythm, S1 and 2 heard without murmurs, gallops or rubs, no JVD, no peripheral edema, CHEST: inspection of chest was normal GASTROINTESTINAL: soft, nontender, ND, no guarding MUSCULOSKELETAL: strength 5/5 throughout, head is normocephalic and atraumatic SKIN: warm and dry NEUROLOGIC: CN 2-12 grossly intact, no sensory deficit, normal cognition, normal speech, no tremor PSYCHIATRIC: alert cooperative and oriented to person, place and time. Euthymic mood, makes good eye contact, language grossly intact, recent and remote memory grossly intact. Results & Data Results & Data ([facility]) Vital Signs (Past 12 Hours) Vital Signs Temp Pulse Pulse Resp BP BP Pulse Ox 02/16/22 12:00 36.8 C 72 18 105/62 96 02/16/22 11:09 02/16/22 09:03 72 02/16/22 08:00 37 C 65 18 105/68 95 02/16/22 03:15 37.0 C 74 16 121/76 97 O2 Del Method O2 Flow Rate 02/16/22 12:00 Nasal Cannula 2 02/16/22 11:09 Nasal Cannula 02/16/22 09:03 02/16/22 08:00 Nasal Cannula 2 02/16/22 03:15 Nasal Cannula 2 Laboratory Results Short CBC 02/15/22 Range/Units 14:15 WBC 5.66 (4.8-10.8) K/ul Hgb 11.9 L (12.0-16.0) g/dl Hct 37.0 (34.1-44.9) % Plt Count 205 (130-400) K/uL Medications Administered Current Inpatient Medications Acetaminophen (Acetaminophen 325 Mg Tab) 650 mg PO Q4H PRN PRN Reason: Pain or Fever Stop: 03/15/22 23:12 Atorvastatin Calcium (Atorvastatin 40 Mg Tab) 40 mg PO DAILY PATRICIA Stop: 03/16/22 08:59 Last Admin: 02/16/22 08:03 Dose: 40 mg Citalopram Hydrobromide (Citalopram 20 Mg Tab) 20 mg PO DAILY PATRICIA Stop: 03/16/22 08:59 Last Admin: 02/16/22 08:03 Dose: 20 mg Fluticasone Propionate (Fluticasone Propionate Na Spr 16 Gm Btl) 2 sprays NA DAILY PRN PRN Reason: Allergy Symptoms Stop: 03/16/22 08:59 Promethazine HCl 12.5 mg/ (Sodium Chloride) 50.5 mls @ 202 mls/hr IV Q6H PRN PRN Reason: Nausea And Vomiting Stop: 03/15/22 23:12 Heparin Sodium/Dextrose (Heparin Sodium/Dextrose) 25,000 units in 500 mls @ 24 mls/hr IV .[id number] [facility]; Protocol Stop: 03/17/22 19:59 Last Titration: 02/16/22 10:36 Dose: 1,200 units/hr, 24 mls/hr Ketorolac Tromethamine (Ketorolac Tromethamine 15 Mg/Ml Vial) 15 mg IV Q6H PRN PRN Reason: Pain Stop: 02/19/22 19:59 Last Admin: 02/16/22 06:30 Dose: 15 mg Lactobacillus Acidophilus (Advanced Probiotic 1250 Mg Capsule) 2 cap PO DAILY [facility] Stop: 03/16/22 08:59 Last Admin: 02/16/22 08:03 Dose: 2 cap Oxycodone HCl (Oxycodone Hcl Ir 5 Mg Tab (Immediate Release)) 5 mg PO Q6H PRN PRN Reason: severe pain Stop: 02/28/22 14:47 Polyethylene Glycol (Polyethylene (Miralax) 17 Gm Pack) 17 gm PO DAILY PRN PRN Reason: Constipation Stop: 03/17/22 23:16 Senna/Docusate Sodium (Docusate Sodium/Senna 50/8.6mg Tab) 1 tab PO QAM [facility] Stop: 03/17/22 23:19 Last Admin: 02/15/22 23:42 Dose: 1 tab
--- NOTE | 2022-02-16 15:36 | XRay Report ---
SINGLE VIEW CHEST CLINICAL HISTORY: Pulmonary emboli. Abnormal physical examination. Crackles at the left lung base. FINDINGS: An AP, portable, upright chest radiograph is correlated with chest CT dated 02/13/2022. The cardiomediastinal silhouette is unremarkable. There is elevation of the right hemidiaphragm with biba silar consolidation. No large pleural effusion or pneumothorax is seen. The bony thorax is grossly in tact. IMPRESSION: 1. Dependent consolidation is present at both lung bases. Given extensive pulmonary emboli this coul d represent evolving pulmonary infarcts. Correlate clinically for evidence of a superimposed infectio us/inflammatory pneumonitis. Radiographic follow-up to resolution is recommended. 2. No large pleural effusion is seen ACT 112: Negative or not required by law. Electronically signed by: Keith Waters M.D. 02/16/2022 3:35 PM
[2022-02-16] MEDS: HEPARIN SODIUM/DEXTROSE 25,000 UNITS/500 ML BAG IV SCH ×2 (17:03→18:23)
[2022-02-16 23:58] LABS: Partial Thromboplastin Ratio 2.8
[2022-02-17 00:14] LABS: Partial Thromboplastin Time 78.3 Seconds (21.0-31.0)
[2022-02-17] MEDS: KETOROLAC TROMETHAMINE 15 MG/ML VIAL IV PRN ×2 (00:52→21:21)
[2022-02-17 07:12] LABS: Basophils # (auto) 0.02 K/uL (0-0.2); Basophils % (auto) 0.4 %; Eosinophils # (auto) 0.18 K/uL (0-0.50); Eosinophils % (auto) 3.4 %; Hemoglobin 12.4 g/dl (12.0-16.0); Immature Granulocytes # (auto) 0.04 K/uL (0.00-0.02); Immature Granulocytes % (auto) 0.8 %; Lymphocytes # (auto) 1.27 K/uL (1.2-3.4); Mean Corpuscular Hemoglobin 28.6 pg (25.0-34.0); Mean Corpuscular Hgb Conc 32.6 g/dL (32.0-36.0); Mean Corpuscular Volume 87.6 fL (80.0-100.0); Mean Platelet Volume 9.7 fL (9.4-12.3); Monocytes # (auto) 0.53 K/uL (0.24-0.82); Neutrophils # (auto) 3.25 K/uL (1.4-6.5); Neutrophils % (auto) 61.4 %; Platelet Count 228 K/uL (130-400); RDW Coefficient of Variation 13.8 % (11.5-14.5); RDW Standard Deviation 44.9 fL (36.4-46.3); Red Blood Count 4.34 M/uL (3.93-5.22); White Blood Count 5.29 K/ul (4.8-10.8)
[2022-02-17 07:36] LABS: Creatinine Clr Calc Pharmacy 80.7 ml/min; Est GFR (African American) 90.4 ml/min
[2022-02-17 07:43] LABS: Prothrombin Time 10.6 Seconds (9.0-12.0)
[2022-02-17] MEDS: ADVANCED PROBIOTIC 1250 MG CAPSULE PO SCH (08:06)
[2022-02-17] MEDS: ATORVASTATIN 40 MG TAB PO SCH (08:06)
[2022-02-17] MEDS: DOCUSATE SODIUM/SENNA 50/8.6MG TAB PO SCH (08:06)
[2022-02-17] MEDS: CITALOPRAM 20 MG TAB PO SCH (08:06)
[2022-02-17 08:56] LABS: Partial Thromboplastin Time 82.3 Seconds (21.0-31.0)
--- NOTE | 2022-02-17 09:21 | Pulmonary Consultation ---
Date of Consultation February 17, 2022 Assessment & Plan (1) Bilateral pulmonary embolism: (2) Obesity: (3) Pulmonary infarction: Plan 67-year-old female with an unprovoked PE presenting to the hospital. This is her second pulmonary embolism. Hypercoagulable work-up is pending. Recommend lifelong anticoagulation given that this is her second event and is presumably unprovoked. Await hypercoagulable studies. She can transition to a DOAC. Will defer to the primary team. Recommend outpatient hematology follow- up. The pulmonary infarcts will resolve with time. Defer pain control from pleurisy to the primary team. There is no evidence of a pleural effusion. Echocardiogram without evidence of pulmonary hypertension. No indication for systemic thrombolysis at this time. Will prescribe an incentive spirometer to help improve inspiratory effort and prevent atelectasis. Thank you for allowing us to participate in the care of this patient. Please call with questions. History of Present Illness Reason for Consultation: Pulmonary embolism Attending Physician: Melina Patel, History of Present Illness 67-year-old female with a past medical history of pulmonary embolism treated with Xarelto that was provoked due to total vaginal hysterectomy and BSO, small bowel obstruction, depression and hyperlipidemia who presented to the hospital due to increasing right chest wall pain. She had a chest CTA completed on admission which demonstrated thrombus in the right main pulmonary artery with numerous emboli extending into the right lower lobe pulmonary artery branches. There were pulmonary emboli noted in the left upper lobe pulmonary branches as well. Atelectasis noted at the right lung base. Patient is currently on heparin. She was saturating 97% on 2 L. Chest x-ray completed yesterday demonstrates dependent consolidation in both lung bases which may represent evolving pulmonary infarct. A hypercoagulable work-up is currently pending. She had an echocardiogram completed today which demonstrated normal LVEF of 60 to 65%. Grade 1 diastolic dysfunction. Right ventricular size normal and function normal. No evidence of pulm hypertension. Current chest pain is improving significantly. Dyspnea improved as well. She is able to take deeper breaths today. No fevers, chills or night sweats. She notes that she had a fall a few weeks prior to the pulmonary embolism. She is currently retired. She smoked for about 25 years. She quit smoking 25 to 30 years ago. She smoked half a pack per day. Allergies Allergy/AdvReac Type Severity Reaction Status Date / Time No Known Allergies Allergy Verified 02/13/22 21:03 Home Medications Medication Instructions Recorded Confirmed Type aspirin 81 mg tablet,delayed 81 mg PO DAILY 02/13/22 02/13/22 History release atorvastatin 40 mg tablet 40 mg PO DAILY 02/13/22 02/13/22 History beclomethasone dipropionate 80 2 spray intranasal DAILY 02/13/22 02/13/22 History mcg/actuation nasal HFA inhaler (QNASL) citalopram 20 mg tablet 20 mg PO DAILY 02/13/22 02/13/22 History diclofenac sodium 75 mg 75 mg PO BID 02/13/22 02/13/22 History tablet,delayed release lactobacillus combination no.4 3 0 mmu cells PO DAILY 02/13/22 02/13/22 History billion cell capsule (Probiotic) rivaroxaban 15 mg tablet (Xarelto) 15 mg PO BID 21 days #42 tabs 02/16/22 Rx rivaroxaban 20 mg tablet (Xarelto) 20 mg PO DAILY #30 tabs 02/16/22 Rx Patient History Medical History (Updated 02/17/22 @ 11:01 by Jairo Hsu MD) Depression HLD (hyperlipidemia) Obesity Pulmonary embolism Pulmonary infarction Small bowel obstruction x 3 last in 2018 Surgical History History of dilatation and curettage History of tubal ligation Hx of cholecystectomy Hx of colonoscopy Hx of hysterectomy Hx of sinus surgery Hx of tonsillectomy Family History Father , 52 - [place] Myocardial infarction Mother Stroke Brother Cancer brain cancer Social History (Updated 02/13/22 @ 20:31 by Chelsy Bolanos PA-C) Smoking Status: Former smoker Years Smoked: 25; Smoking End Date: 1996; Second Hand Exposure: No; Do You Dip or Chew Tobacco: No; Tobacco Cessation Education Requested by Patient: No Hx Alcohol Use: No Hx Substance Use: No Preferred Language: Occitan Communication Ability: Effective Pecan Grower Required: No Beliefs That Will Affect Care: Mandaeism Mandaeism Beliefs: Would like to see knockdown worker marital status: Current Living Situation: Spouse Current Living Situation Comment: single family home current occupational status: retired Feels Safe at Home: Yes Safety Concerns: Feels Safe At This Time Assistive Devices: None Review of Systems Review of Systems: All systems reviewed & are unremarkable except as noted in HPI & below Physical Exam Physical Exam: Constitutional: Obese appearing female laying in bed in no apparent distress. Nasal cannula in place. Eyes: Pupils are equal round and reactive to light. Conjunctivae are normal. Anicteric sclera. Ears nose, mouth and throat: Deferred. Neck: Trachea is midline. Visual inspection is normal. Respiratory: Diminished bilaterally. No use of accessory muscles. No sign ificant clubbing noted. Cardiovascular: Regular rate and rhythm. No murmurs. No edema. Gastrointestinal: Normal bowel sounds, soft, nontender and nondistended. No hepatosplenomegaly noted. Musculoskeletal: No cyanosis. Patient is able to move all extremities. Skin: No rashes, warm dry and intact. Neurologic: No obvious focal neurological deficits seen. Psychiatric: Alert and oriented x3 with a euthymic affect. Results & Data Results & Data ([facility]) Vital Signs (Past 12 Hours) Vital Signs Temp Pulse Pulse Resp BP Pulse Ox O2 Del Method 02/17/22 07:18 63 02/17/22 06:48 36.8 C 76 18 101/61 97 Nasal Cannula 02/17/22 04:00 36.8 C 65 18 104/61 96 Nasal Cannula 02/16/22 22:00 37.1 C 78 18 130/73 97 Nasal Cannula 02/17/22 00:07 80 02/16/22 23:04 Nasal Cannula O2 Flow Rate 02/17/22 07:18 02/17/22 06:48 2 02/17/22 04:00 2 02/16/22 22:00 2 02/17/22 00:07 02/16/22 23:04 2 PG Care Time/CCT Total # of Minutes Spent Total Time Spent with Patient: Total time spent is greater than 50% in coordination of care (as documented) at patient's floor/unit and/or counseling patient: Coding Level of Care Code 63378 Initial Inpt Care Lvl 3 Diagnoses Bilateral pulmonary embolism I26.99 Obesity E66.9 Pulmonary infarction I26.99
[2022-02-17] MEDS: HEPARIN SODIUM/DEXTROSE 25,000 UNITS/500 ML BAG IV SCH ×2 (13:34→16:03)
--- NOTE | 2022-02-17 14:09 | Hospitalist Progress Note ---
Date of Service February 17, 2022 Assessment & Plan (1) Pulmonary embolism: Plan: Cont heparin drip Will plan to switch to Xarelto after researching with her insurance. She prefers not to be on coumadin and will pay the high deductible for the NOAC. Doing well with Toradol for pain as needed-->this is improving Tylenol and oxycodone also available. Patient counseled on bleeding risk with added NSAID Add oxygen with development of hypoxia overnight (90% on room air). CXR findings concerning for developing pulmonary infarctions-consulted pulm No clinical evidence of infection at this point, so will hold off on abx. (2) HLD (hyperlipidemia): Plan: Chronic stable, continue statin per home regimen. (3) Depression: Plan: Chronic, stable, continue home SSRI. (4) DVT prophylaxis: Plan: Heparin Full Code Dipso-to home pending clinical improvement and pulmonary recommendations. Melina Patel DO [facility] Hospitalist Admission and Anticipated Discharge Date Admission Date: February 13, 2022 Subjective Patient is a 67-year-old female with a history of provoked blood clot many years ago who presents with an acute pulmonary embolus. She had a recent fall with a swelling in her right leg within the last 2 weeks. Other than that there are no known causes or provocations for creation of this blood clot. She has extensive pulmonary embolus in the right side and left sides of her lungs. She is currently reporting severe pain especially on the right side with radiation into the back. Chest pain still present with stabbing quality to it but this is improved Toradol is helping She is able to take a deep breath today which is new Denies fevers Pulm saw patient and we reviewed expectations and plan. Review of Systems Review of Systems: All systems reviewed negative except as indicated above. Physical Exam Physical Exam: CONSTITUTIONAL: obese, vitals as above, generally well- appearing, NAD EYES: normal conjunctivae, no scleral icterus, ENT: external ear and nose normal, MMM NECK: trachea midline RESPIRATORY: crackles in bases bilaterally, otherwise clear without rales or wheezes, normal respiratory effort CARDIOVASCULAR: regular rate and rhythm, S1 and 2 heard without murmurs, gallops or rubs, no JVD, no peripheral edema, CHEST: inspection of chest was normal GASTROINTESTINAL: soft, nontender, ND, no guarding MUSCULOSKELETAL: strength 5/5 throughout, head is normocephalic and atraumatic SKIN: warm and dry NEUROLOGIC: CN 2-12 grossly intact, no sensory deficit, normal cognition, normal speech, no tremor PSYCHIATRIC: alert cooperative and oriented to person, place and time. Euthymic mood, makes good eye contact, language grossly intact, recent and remote memory grossly intact. Results & Data Results & Data ([facility]) Vital Signs (Past 12 Hours) Vital Signs Temp Pulse Pulse Resp BP BP Pulse Ox 02/17/22 11:03 36.9 C 71 18 109/73 96 02/17/22 07:18 63 02/17/22 06:48 36.8 C 76 18 101/61 97 02/17/22 04:00 36.8 C 65 18 104/61 96 O2 Del Method O2 Flow Rate 02/17/22 11:03 2 02/17/22 07:18 02/17/22 06:48 Nasal Cannula 2 02/17/22 04:00 Nasal Cannula 2 Laboratory Results Short CBC 02/17/22 Range/Units 06:55 WBC 5.29 (4.8-10.8) K/ul Hgb 12.4 (12.0-16.0) g/dl Hct 38.0 (34.1-44.9) % Plt Count 228 (130-400) K/uL BMP 02/17/22 06:55 Creatinine 0.79 Medications Administered Current Inpatient Medications Acetaminophen (Acetaminophen 325 Mg Tab) 650 mg PO Q4H PRN PRN Reason: Pain or Fever Stop: 03/15/22 23:12 Atorvastatin Calcium (Atorvastatin 40 Mg Tab) 40 mg PO DAILY PATRICIA Stop: 03/16/22 08:59 Last Admin: 02/17/22 08:06 Dose: 40 mg Citalopram Hydrobromide (Citalopram 20 Mg Tab) 20 mg PO DAILY PATRICIA Stop: 03/16/22 08:59 Last Admin: 02/17/22 08:06 Dose: 20 mg Fluticasone Propionate (Fluticasone Propionate Na Spr 16 Gm Btl) 2 sprays NA DAILY PRN PRN Reason: Allergy Symptoms Stop: 03/16/22 08:59 Promethazine HCl 12.5 mg/ (Sodium Chloride) 50.5 mls @ 202 mls/hr IV Q6H PRN PRN Reason: Nausea And Vomiting Stop: 03/15/22 23:12 Heparin Sodium/Dextrose (Heparin Sodium/Dextrose) 25,000 units in 500 mls @ 21 mls/hr IV .[id number] [facility]; Protocol Stop: 03/17/22 19:59 Last Admin: 02/17/22 13:34 Dose: 1,050 units/hr, 21 mls/hr Ketorolac Tromethamine (Ketorolac Tromethamine 15 Mg/Ml Vial) 15 mg IV Q6H PRN PRN Reason: Pain Stop: 02/19/22 19:59 Last Admin: 02/17/22 00:52 Dose: 15 mg Lactobacillus Acidophilus (Advanced Probiotic 1250 Mg Capsule) 2 cap PO DAILY [facility] Stop: 03/16/22 08:59 Last Admin: 02/17/22 08:06 Dose: 2 cap Oxycodone HCl (Oxycodone Hcl Ir 5 Mg Tab (Immediate Release)) 5 mg PO Q6H PRN PRN Reason: severe pain Stop: 02/28/22 14:47 Polyethylene Glycol (Polyethylene (Miralax) 17 Gm Pack) 17 gm PO DAILY PRN PRN Reason: Constipation Stop: 03/17/22 23:16 Senna/Docusate Sodium (Docusate Sodium/Senna 50/8.6mg Tab) 1 tab PO QAM [facility] Stop: 03/17/22 23:19 Last Admin: 02/17/22 08:06 Dose: 1 tab
[2022-02-17 15:32] LABS: Partial Thromboplastin Ratio 2.5
[2022-02-17 15:49] LABS: Partial Thromboplastin Time 67.6 Seconds (21.0-31.0)
[2022-02-17 20:45] LABS: Partial Thromboplastin Ratio 2.2
[2022-02-17 21:26] LABS: Partial Thromboplastin Time 60.9 Seconds (21.0-31.0)
[2022-02-18] MEDS: DOCUSATE SODIUM/SENNA 50/8.6MG TAB PO SCH (08:00)
[2022-02-18] MEDS: ATORVASTATIN 40 MG TAB PO SCH (08:00)
[2022-02-18] MEDS: CITALOPRAM 20 MG TAB PO SCH (08:00)
[2022-02-18] MEDS: ADVANCED PROBIOTIC 1250 MG CAPSULE PO SCH (08:00)
[2022-02-18 08:31] LABS: Partial Thromboplastin Ratio 2.6; Prothrombin Time 10.5 Seconds (9.0-12.0)
[2022-02-18] MEDS ORDERED: IBUPROFEN 800 MG TAB PO PRN (08:37)
[2022-02-18 08:43] LABS: Partial Thromboplastin Time 71.8 Seconds (21.0-31.0)
[2022-02-18] MEDS ORDERED: RIVAROXABAN 15 MG TAB PO SCH (09:00)
[2022-02-18] MEDS: HEPARIN SODIUM/DEXTROSE 25,000 UNITS/500 ML BAG IV SCH (09:29)
--- NOTE | 2022-02-18 10:54 | Discharge Summary ---
Date of Service February 18, 2022 Admission HPI Per Admitting Provider This is a 67-year-old female who has a significant past medical history of pulmonary embolism treated with Xarelto after undergoing total vaginal hysterectomy and BSO and just stopping hormone replacement therapy, small bowel obstruction x4 secondary to adhesions, depression and HLD who presents to ED after experiencing right lateral chest wall pain off and on for 2 weeks. Patient complains of right upper lateral chest wall pain that initially started about 2 weeks ago. It came on all of a sudden and was described as stabbing and rated as an 8 out of 10. It would be made worse with movement and deep breathin g. Nothing would make it better and it would resolve on its own. She then went a period of about a week without any symptoms and over the last week has noticed increasing pain specifically over the last 2 days. Today pain became so severe and unrelenting she came to ED. She tried nothing [id number] for her pain. It does not feel similar to her prior blood clot. She has never experienced anything like this in the past. Pain does not radiate anywhere. When pain comes on she does overall feel clammy and nauseous. She denies any radhames fever, chills, sweats, lightheadedness, dizziness, syncope, chest pain, shortness with at rest, cough, hemoptysis, emesis, abdominal pain, dysuria, increased urgency or frequency with urination, melena or hematochezia. She does feel short of breath with exertion and having difficulty taking a big deep breath. She has never been tested for any clotting disorder and denies any known family history of clotting disorder. Her last pulmonary embolism was felt to be provoked secondary to recent surgery. She did recently moved to the area approximately 3 weeks ago made 14 trips back and forth from [place] to move to the area. Each trip one-way was approximately 3 hours. She denies any recent illness. In ED patient remained hemodynamically stable. Blood pressure was mildly elevated at 150/78 and heart rate 92. Chest CTA reveals extensive right lower lobe and left upper lobe pulmonary emboli. No evidence of right heart strain. CT abdomen pelvis also reveals mild hydroureter on the right with calcification seen in the region of the right UVJ suspicious for distal ureteral calculus. A hypercoagulable panel was obtained. She was started on IV heparin. Of significance she is up-to-date on all her routine cancer screenings including colonoscopy and mammogram. She requires no cervical screening secondary to total abdominal hysterectomy and BSO. Discharge Exam CONSTITUTIONAL: obese, vitals as above, generally well-appearing, NAD EYES: normal conjunctivae, no scleral icterus, ENT: external ear and nose normal, MMM NECK: trachea midline RESPIRATORY: crackles in bases bilaterally, otherwise clear without rales or wheezes, normal respiratory effort CARDIOVASCULAR: regular rate and rhythm, S1 and 2 heard without murmurs, gallops or rubs, no JVD, no peripheral edema, CHEST: inspection of chest was normal GASTROINTESTINAL: soft, nontender, ND, no guarding MUSCULOSKELETAL: strength 5/5 throughout, head is normocephalic and atraumatic SKIN: warm and dry NEUROLOGIC: CN 2-12 grossly intact, no sensory deficit, normal cognition, normal speech, no tremor PSYCHIATRIC: alert cooperative and oriented to person, place and time. Euthymic mood, makes good eye contact, language grossly intact, recent and remote memory grossly intact. Discharge Data Allergies Allergy/AdvReac Type Severity Reaction Status Date / Time No Known Allergies Allergy Verified 02/13/22 21:03 Consultations 02/13/22 20:05 ED Decision to Admit Stat 02/16/22 16:29 Consult Pulmonology Routine Ordered Studies 02/13/22 17:31 CT Abd and Pelvis [CT abd pelvis IV con only] Stat CT angio chest PE protocol Stat 02/13/22 21:25 US venous doppler [facility] Routine Hospital Course (1) Pulmonary embolism: Cont heparin drip Will plan to switch to Xarelto after researching with her insurance. She prefers not to be on coumadin and will pay the high deductible for the NOAC. Doing well with Toradol for pain as needed-->this is improving Tylenol and oxycodone also available. Patient counseled on bleeding risk with added NSAID Add oxygen with development of hypoxia overnight (90% on room air). CXR findings concerning for developing pulmonary infarctions-consulted pulm No clinical evidence of infection at this point, so will hold off on abx. (2) HLD (hyperlipidemia): Chronic stable, continue statin per home regimen. (3) Depression: Chronic, stable, continue home SSRI. (4) DVT prophylaxis: Heparin Full Code Dipso-to home pending clinical improvement and pulmonary recommendations. [facility] Plan Discharge Items Patient Disposition: Home - Self-Care Reason For Visit: PE Discharge Diagnosis: Acute pulmonary embolus Condition on Discharge: Good Activity: Resume your previous activity Non-emergency contact: Primary Care Provider Call non-emergency contact if: you have any medication questions, your symptoms worsen, your pain is not controlled, your pain is worsening, your pain is concerning for you and your temperature is above 101.5 Follow-up/Referrals: Cassy Nicole MD [Primary Care Provider] - (Date & Time 02/25/2022 9:40 AM Provider Cassy Dorado MD Department Family [facility] ) Diet: Regular Addtl Attending Provider Instructions: Please take all medications as instructed on discharge list below. Please start taking the Xarelto 15mg twice daily for 21 days, then switch to 20mg once daily. A referral to Hematology is recommended to discuss your need for ongoing anticoagulation treatment based on your risk. Please note, when using Motrin or other NSAIDs, your risk of bleeding increases. Please only use if you have SEVERE PAIN that is not controlled with plain Tylenol or Tramadol. Please follow-up with your primary care provider at the date and time listed to check on how you are tolerating the medication and to follow-up on your hypercoagulable panel which was still pending at time of discharge. It was a pleasure taking care of you! Please call if you have any questions or problems. You can reach a [facility] hospitalist on duty at [facility] 24 hours a day by calling [phone]. Take care of yourself. DO [facility] Pending Studies at Discharge: Yes Studies:: hypercoagulable workup Stand-Alone Forms: My [facility] Medications and DC Order Prescriptions: New Xarelto 15 mg tablet 15 mg PO BID 21 Days Qty: 42 0RF Rx Instructions: must administer with a meal/food Xarelto 20 mg tablet 20 mg PO DAILY Qty: 30 0RF Rx Instructions: start after initial loading dose, must administer with evening meal ibuprofen 800 mg Tablet 800 mg PO TID PRN (Reason: pain (scale score 7-10)) Qty: 30 0RF tramadol 50 mg tablet 50 mg PO Q8H PRN (Reason: pain) Qty: 30 0RF Continued QNASL 80 mcg/actuation HFA aerosol inhaler 2 spray INTRANASAL DAILY atorvastatin 40 mg tablet 40 mg PO DAILY Probiotic 3 billion cell Capsule 0 mmu cells PO DAILY Rx Instructions: administer with a meal citalopram 20 mg tablet 20 mg PO DAILY Discontinued aspirin [Aspir-Low] 81 mg Tablet,Delayed Release (Dr/Ec) 81 mg PO DAILY diclofenac sodium 75 mg tablet,delayed release (DR/EC) 75 mg PO BID Discharge Orders: Discharge Order (Routine); Ordered 02/18/22 Ordered By: Melina Patel Admission Data Admit Date/Time: 02/13/22 21:29 Attending Provider: Melina Patel Admit Provider: Ganga Marcus Primary Care Provider: Cassy Nicole Other Providers: Ganga Marcus ; Jairo Hsu
[2022-02-20 01:38] LABS: Anti Cardiolipin Ab IgG <2.0 GPL-U/mL; Anti Cardiolipin Ab IgM 3.6 MPL-U/mL; Anti-Thrombin III Activity 99 % normal (80-135); B2 Glycoprotein IgG <2.0 U/mL (<20.0); B2 Glycoprotein IgM 3.4 U/mL (<20.0); PTT LA Screen 36 sec (<=40); Protein S Functional(Activity) 78 % (60-140)
[2022-02-26 01:36] LABS: Factor 5 Mutation NEGATIVE
== END 2022-02-18 12:25 | disposition home or self-care (01) | DRG 176 ==
LOC: ED 17:16 → 2N 21:29

== ENCOUNTER 2023-03-02 18:27 | Observation (INO) ==
--- NOTE | 2023-03-02 18:38 | ED Triage Note ---
Date of Service March 02, 2023 History of Present Illness This patient was briefly evaluated while in triage. An abbreviated physical exam was performed. This patient is a 68-year-old Female who presents to the ED for evaluation of a possible TIA. The patient reports that this afternoon she started to notice numbness and tingling of her left face, left arm and side. Symptoms lasted approximately 20 minutes, and started a little at 5:30 PM. She reports that the symptoms have resolved except for the posterior headache that she rates an 8 out of 10. She also reports additional blurred vision in the left eye. She also had an episode yesterday afternoon as well. Patient has previously been seen at [facility] earlier this month, and diagnosed with TIA. Patient reports that she did have CT and MRI imaging that was normal. She also had an echo of the heart that was normal. She is currently on Xarelto. The patient does have a follow- up neurology appointment with Dr. Myers tomorrow morning at 11:20 AM. Physical Exam CONSTITUTIONAL: Healthy and well nourished. Alert and oriented X 3. GCS 15. HEENT: Normocephalic, atraumatic. Pupils equal, round and reactive. No facial droop. NECK: Full active range of motion without discomfort. No JVD or carotid bruits. RESPIRATORY: Clear to auscultation bilaterally with no wheezing, crackles, rhonchi or stridor. CARDIOVASCULAR: Regular rate and rhythm with no murmurs, rubs or gallops. INTEGUMENTARY: No rash or other significant dermatologic conditions noted. HEMATOLOGIC: No ecchymosis or petechiae. PSYCHIATRIC: Positive affect. NEUROLOGIC: No focal neurologic deficits appreciated. Initial orders for labs and / or imaging were placed and patient was placed in the waiting area until a bed is available. Please see further documentation for the full ED course.
[2023-03-02 19:13] LABS: Basophils # (auto) 0.04 K/uL (0.00-0.20); Basophils % (auto) 0.6 %; Eosinophils # (auto) 0.09 K/uL (0.00-0.50); Eosinophils % (auto) 1.4 %; Hematocrit (blood only) 39.2 % (37.0-47.0); Hemoglobin 13.3 g/dl (12.0-16.0); Immature Granulocytes # (auto) 0.03 K/uL (0.01-0.20); Immature Granulocytes % (auto) 0.5 %; Lymphocytes # (auto) 2.29 K/uL (1.20-3.40); Lymphocytes % (auto) 36.8 %; Mean Corpuscular Hemoglobin 29.8 pg (25.0-34.0); Mean Corpuscular Hgb Conc 33.9 g/dL (32.0-36.0); Mean Corpuscular Volume 87.9 fL (80.0-100.0); Mean Platelet Volume 9.5 fL (9.4-12.4); Monocytes # (auto) 0.49 K/uL (0.11-0.59); Monocytes % (auto) 7.9 %; Neutrophils # (auto) 3.29 K/uL (1.40-6.50); Neutrophils % (auto) 52.8 %; Platelet Count 192 K/uL (130-400); RDW Coefficient of Variation 14.3 % (11.5-14.5); Red Blood Count 4.46 M/uL (4.20-5.40); White Blood Count 6.23 K/ul (4.8-10.8)
[2023-03-02 19:14] LABS: iSTAT Creatinine 1.1 mg/dl (0.6-1.3); iSTAT Hemoglobin 13.6 g/dl (12.0-16.0); iSTAT Ionized Calcium 1.23 mmol/l (1.12-1.32); iSTAT Potassium 3.9 mmol/L (3.3-5.0)
[2023-03-02] MEDS ORDERED: IOVERSOL 350 MG 125mL Prefilled Syringe IV ONE ×2 (19:14→21:24)
[2023-03-02] MEDS ORDERED: OPTIRAY 320 100ml IV ONE (19:22)
[2023-03-02 19:28] LABS: Alanine Aminotransferase 23 U/L (7-52); Albumin Globulin Ratio 1.8 (0.9-2); Albumin Level 4.4 gm/dl (3.4-5.0); Alkaline Phosphatase 75 U/L (34-104); Anion Gap 6 (3-11); Aspartate Aminotransferase 34 U/L (13-39); BUN Creatinine Ratio 24.7 (10-20); Bilirubin,Total 0.6 mg/dl (0.2-1.0); Blood Urea Nitrogen 24 mg/dl (6-23); Calcium 9.9 mg/dl (8.6-10.3); Carbon Dioxide 26 mmol/L (21-32); Chloride 106 mmol/L (98-107); Est GFR (Non-African American) 60.4 ml/min; Globulin 2.4 gm/dl (2.5-4.0); Glucose 96 mg/dl (70-99(Fasting)); Sodium 138 mmol/L (136-145); Total Protein 6.8 gm/dl (6.0-8.3)
--- NOTE | 2023-03-02 19:31 | XRay Report ---
SINGLE VIEW CHEST CLINICAL HISTORY: Neurologic deficit. Stroke like symptoms. FINDINGS: An AP, portable, upright chest radiograph is compared to study dated 06/18/2022. The examin ation is degraded by portable technique and apical lordotic positioning. The cardiomediastinal silhou ette is unremarkable. There is mild bibasilar scarring/atelectasis. The lungs and pleural spaces are otherwise clear. No pneumothorax is seen. The skeletal structures are osteopenic. The bony thorax is grossly intact. IMPRESSION: No active disease in the chest. ACT 112: Negative or not required by law. Electronically signed by: Keith Waters M.D. 03/02/2023 7:29 PM
[2023-03-02 19:34] LABS: Troponin I High Sensitivity 3.7 pg/ml (0-14)
[2023-03-02 19:41] LABS: Partial Thromboplastin Ratio 0.9; Partial Thromboplastin Time 25.4 Seconds (21.0-31.0); Prothrombin Time 10.9 Seconds (9.0-12.0)
--- NOTE | 2023-03-02 20:09 | CT Scan Report ---
Exam(s): CT HEAD Without Contrast EXAM: CT Head Without Intravenous Contrast CLINICAL HISTORY: Reason for exam: neuro deficit, acute stroke suspected. TECHNIQUE: Axial computed tomography images of the head/brain without intravenous contrast. CTDI is 37.87 mGy and DLP is 546.36 mGy-cm. Automated exposure control was utilized for the study. A dose lowering technique was utilized adhering to the principles of ALARA. COMPARISON: None FINDINGS: Brain: No acute infarct or hemorrhage. No extra-axial fluid collection. No mass effect or midline shift. Ventricles and sulci: Normal. No ventriculomegaly or intraventricular hemorrhage. Bones: Normal. No bony lesion or acute fracture. Subcutaneous tissues: Normal. Sinuses: Mild mucosal thickening in the left maxillary sinus. Severe mucosal thickening of the left sphenoid sinus. Mild mucosal thickening in the right sphenoid sinus. Hyperostosis of the rayo of the sphenoid sinuses, suggesting component of chronic sinusitis. Mild mucosal thickening in the ethmoid air cells. Mastoid air cells: Normal. Orbits: Grossly unremarkable. Other: Mild atherosclerotic changes in the intracranial vasculature. IMPRESSION: 1. No acute intracranial abnormality. 2. Paranasal sinus disease. Electronically signed by: Yasmany Gómez M.D. 03/02/23 20:07 PM
--- NOTE | 2023-03-02 20:13 | CT Scan Report ---
Exam(s): CTA NECK With Contrast IV Amt: 116 ml optiray 350 EXAM: CT Angiography Neck With Intravenous Contrast CLINICAL HISTORY: Reason for exam: neuro deficit, acute stroke suspected. TECHNIQUE: Routine carotid CT angiography protocol was performed with intravenous contrast. NASCET criteria using the distal ICAs for comparison were used for evaluation of stenoses. CTDI is 11.62 mGy and DLP is 407 mGy-cm. Automated exposure control was utilized for the study. A dose lowering technique was utilized adhering to the principles of ALARA. MIP reconstructed images were created and reviewed. CONTRAST: Patient received 116 ml optiray 350 of IV contrast COMPARISON: None FINDINGS: VASCULATURE: Right common carotid artery: Unremarkable. No occlusion or significant stenosis. No dissection. Right internal carotid artery: Unremarkable. Extracranial segment is patent with no occlusion or significant stenosis. No dissection. Right external carotid artery: Unremarkable. No occlusion. Right vertebral artery: Unremarkable. No occlusion or significant stenosis. No dissection. Left common carotid artery: Unremarkable. No occlusion or significant stenosis. No dissection. Left internal carotid artery: Atherosclerotic calcifications in the left carotid bulb. No significant stenosis. No dissection. Left external carotid artery: Unremarkable. No occlusion. Left vertebral artery: Unremarkable. No occlusion or significant stenosis. No dissection. NECK: Bones/joints: Degenerative changes of the spine. Soft tissues: Unremarkable. Lung apices: Clear. CAROTID STENOSIS REFERENCE USING NASCET CRITERIA: % ICA stenosis = (1 - narrowest ICA diameter/diameter of distal cervical ICA) x 100. Mild - <50% stenosis. Moderate - 50-69% stenosis. Severe - 70-94% stenosis. Near occlusion - 95-99% stenosis. Occluded - 100% stenosis. IMPRESSION: No significant stenosis, occlusion, or dissection. Electronically signed by: Yasmany Gómez M.D. 03/02/23 20:12 PM
--- NOTE | 2023-03-02 20:17 | CT Scan Report ---
Exam(s): CTA HEAD With Contrast IV Amt: 116 ml optiray 350 EXAM: CT Angiography Head With Intravenous Contrast CLINICAL HISTORY: Reason for exam: neuro deficit, acute stroke suspected. TECHNIQUE: Axial computed tomographic angiography images of the head with intravenous contrast. CTDI is 18.68 mGy and DLP is 407.76 mGy-cm. Automated exposure control was utilized for the study. A dose lowering technique was utilized adhering to the principles of ALARA. MIP reconstructed images were created and reviewed. CONTRAST: Patient received 116 ml optiray 350 of IV contrast COMPARISON: None FINDINGS: Right internal carotid artery: Mild atherosclerotic calcifications of the distal right ICA. No significant stenosis. No aneurysm. Right anterior cerebral artery: Unremarkable. No occlusion or significant stenosis. No aneurysm. Right middle cerebral artery: Unremarkable. No occlusion or significant stenosis. No aneurysm. Right posterior cerebral artery: Unremarkable. No occlusion or significant stenosis. No aneurysm. Right vertebral artery: Unremarkable as visualized. Left internal carotid artery: Mild atherosclerotic calcifications of the distal left ICA. No significant stenosis. No aneurysm. Left anterior cerebral artery: Unremarkable. No occlusion or significant stenosis. No aneurysm. Left middle cerebral artery: Unremarkable. No occlusion or significant stenosis. No aneurysm. Left posterior cerebral artery: Unremarkable. No occlusion or significant stenosis. No aneurysm. Left vertebral artery: Unremarkable as visualized. Basilar artery: Unremarkable. No occlusion or significant stenosis. No aneurysm. IMPRESSION: No significant stenosis, occlusion, or aneurysm in the central or large intracranial arteries. Electronically signed by: Yasmany Gómez M.D. 03/02/23 20:16 PM
[2023-03-02] MEDS ORDERED: SODIUM CHLORIDE 0.9% 1000ML 1,000 ML IV ONE (20:55)
--- NOTE | 2023-03-02 21:16 | History & Physical Report ---
Date of Service March 02, 2023 Assessment & Plan (1) Stroke-like symptoms: (2) Headache: (3) History of pulmonary embolism: (4) Depression: (5) HLD (hyperlipidemia): Plan This is a 68-year-old female with PMH of recurrent pulmonary emboli in 2016 and 2021 on anticoagulation, hyperlipidemia, depression and other medical problems listed below who presents with left-sided tingling and numbness. Please see Dr. Marcus's addendum for assessment and plan. History of Present Illness Chief Complaint: Left-sided weakness Primary Care Provider: Cassy Nicole MD This is a 68-year-old female with PMH of recurrent pulmonary emboli in 2016 and 2021 on anticoagulation, hyperlipidemia, depression and other medical problems listed below who presents with left-sided tingling and numbness. Reports intermittent episodes of this over the past week and was admitted at [facility] earlier this month, where she was diagnosed with TIA. Had negative CT head, CTA head/neck, MRI head and echo with bubble study. LDL 96 and A1C 5.1. Neuro consult recommended increasing lipitor to 80mg and starting baby aspirin. Has been on Xarelto for recurrent pulmonary emboli but notably had recently reduced dose from 20 to 10 mg 1 day prior to TIA at the beginning of February. Had another similar episode on February 11 and was seen by PCP. Referred to neurology who she is scheduled to see tomorrow. Episodes start with LUE paresthesias and numbness in L arm that progress to L side of face. Endorses visual changes in lateral left eye described as "pixilated dots" with associated severe headache as well as difficulty getting words out. Also had brief feelings of nausea and chest heaviness during episode. Visual disturbances, chest heaviness, paresthesias all resolved within 20 minutes but headache remained. Denies any radhames weakness, facial droop, difficulty swallowing, confusion or a mbulatory dysfunction. No recent infection although does have ongoing issues with L sinus pressure and congestion. No fever, chills, lightheadedness, SOB, vomiting, abdominal pain, dysuria, diarrhea or constipation. Current TIA regimen is Xarelto 10mg daily, aspirin 81mg daily and atorvastatin 80mg HS. Allergies Allergy/AdvReac Type Severity Reaction Status Date / Time No Known Allergies Allergy Verified 03/02/23 20:11 Home Medications Medication Instructions Recorded Confirmed Type citalopram 20 mg tablet 20 mg PO QAM 02/13/22 03/02/23 History acetaminophen 500 mg tablet 500 mg PO Q6H PRN Pain 03/02/23 03/02/23 History aspirin 81 mg capsule 81 mg PO DAILY 03/02/23 03/02/23 History atorvastatin 80 mg tablet 80 mg PO HS 03/02/23 03/02/23 History rivaroxaban 10 mg tablet (Xarelto) 10 mg PO PM 03/02/23 03/02/23 History Past Med/Surg History Medical History (Updated 03/02/23 @ 22:35 by Corinna Law PA-C) Depression History of pulmonary embolism HLD (hyperlipidemia) Obesity Pulmonary embolism Pulmonary infarction Small bowel obstruction x 3 last in 2018 Surgical History History of dilatation and curettage History of tubal ligation Hx of cholecystectomy Hx of colonoscopy Hx of hysterectomy Hx of sinus surgery Hx of tonsillectomy Family History Father , 52 - [place] Myocardial infarction Mother Stroke Brother Cancer brain cancer Social History Smoking Status: Former smoker Second Hand Exposure: No; Do You Dip or Chew Tobacco: No; Hx Alcohol Use: No Hx Substance Use: No Preferred Language: Greek Communication Ability: Effective 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 Physical Exam Physical Exam: General Appearance: WD/WN, vitals as above, NAD, sitting up in bed, pleasant, conversing easily Head: normocephalic, atraumatic Eyes: normal inspection, PERRL, conjunctivae normal, anicteric sclerae ENT: external ear and nose normal, oropharynx normal Neck: normal visual inspection, trachea midline, no thyromegaly Respiratory: normal respiratory effort, lungs clear to auscultation, no wheeze, rales, rhonchi. No accessory muscle use Cardiovascular: regular rate, rhythm, no murmur, normal peripheral pulses, no BLE edema. Vessels: no JVD Chest: normal inspection of chest Abdomen/GI: normal bowel sounds, soft, nontender, no hepatosplenomegaly Extremities/Musculoskeletal: no cyanosis or clubbing, extremities motor strength 5/5 in BUE and BLE, no sensory deficit noted in LUE Neurologic: PERRL, EOMI, accommodation nl, no face palsy, no dysarthria, CN's II-XI intact bilaterally and moves all extremities Psychiatric: A+Ox3, anxious Skin: no rashes, normal color, warm/dry Results & Data Results & Data Vital Signs (Past 12 Hours) Vital Signs Temp Pulse Pulse Resp BP BP Pulse Ox 03/02/23 19:42 57 L 21 97 03/02/23 19:41 58 L 16 112/66 98 03/02/23 19:30 57 L 16 95 03/02/23 18:32 36.5 C 67 20 132/71 97 O2 Del Method 03/02/23 19:42 Room Air 03/02/23 19:41 Room Air 03/02/23 19:30 Room Air 03/02/23 18:32 Room Air Laboratory Results Short CBC 03/02/23 Range/Units 18:51 WBC 6.23 (4.8-10.8) K/ul Hgb 13.3 (12.0-16.0) g/dl Hct 39.2 (37.0-47.0) % Plt Count 192 (130-400) K/uL BMP 03/02/23 18:51 Sodium 138 Potassium 4.0 Chloride 106 Carbon Dioxide 26 BUN 24 H Creatinine 0.97 Glucose 96 Calcium 9.9 Liver Function 03/02/23 Range/Units 18:51 Total Bilirubin 0.6 (0.2-1.0) mg/dl AST 34 (13-39) U/L ALT 23 (7-52) U/L Alkaline Phosphatase 75 (34-104) U/L Albumin 4.4 (3.4-5.0) gm/dl Diagnostic Findings Chest X-Ray 03/02/23 18:39 SINGLE VIEW CHEST CLINICAL HISTORY: Neurologic deficit. Stroke like symptoms. FINDINGS: An AP, portable, upright chest radiograph is compared to study dated 06/18/2022. The examination is degraded by portable technique and apical lordotic positioning. The cardiomediastinal silhouette is unremarkable. There is mild bibasilar scarring/atelectasis. The lungs and pleural spaces are otherwise clear. No pneumothorax is seen. The skeletal structures are osteopenic. The bony thorax is grossly intact. IMPRESSION: No active disease in the chest. ACT 112: Negative or not required by law. Electronically signed by: Keith Waters M.D. 03/02/2023 7:[address] 03/02/23 18:39 Exam(s): CT HEAD Without Contrast EXAM: CT Head Without Intravenous Contrast CLINICAL HISTORY: Reason for exam: neuro deficit, acute stroke suspected. TECHNIQUE: Axial computed tomography images of the head/brain without intravenous contrast. CTDI is 37.87 mGy and DLP is 546.36 mGy-cm. Automated exposure control was utilized for the study. A dose lowering technique was utilized adhering to the principles of ALARA. COMPARISON: None FINDINGS: Brain: No acute infarct or hemorrhage. No extra-axial fluid collection. No mass effect or midline shift. Ventricles and sulci: Normal. No ventriculomegaly or intraventricular hemorrhage. Bones: Normal. No bony lesion or acute fracture. Subcutaneous tissues: Normal. Sinuses: Mild mucosal thickening in the left maxillary sinus. Severe mucosal thickening of the left sphenoid sinus. Mild mucosal thickening in the right sphenoid sinus. Hyperostosis of the rayo of the sphenoid sinuses, suggesting component of chronic sinusitis. Mild mucosal thickening in the ethmoid air cells. Mastoid air cells: Normal. Orbits: Grossly unremarkable. Other: Mild atherosclerotic changes in the intracranial vasculature. IMPRESSION: 1. No acute intracranial abnormality. 2. Paranasal sinus disease. Electronically signed by: Yasmany Gómez M.D. 03/02/23 20:07 PM Head CTA 03/02/23 18:39 Exam(s): CTA HEAD With Contrast IV Amt: 116 ml optiray 350 EXAM: CT Angiography Head With Intravenous Contrast CLINICAL HISTORY: Reason for exam: neuro deficit, acute stroke suspected. TECHNIQUE: Axial computed tomographic angiography images of the head with intravenous contrast. CTDI is 18.68 mGy and DLP is 407.76 mGy-cm. Automated exposure control was utilized for the study. A dose lowering technique was utilized adhering to the principles of ALARA. MIP reconstructed images were created and reviewed. CONTRAST: Patient received 116 ml optiray 350 of IV contrast COMPARISON: None FINDINGS: Right internal carotid artery: Mild atherosclerotic calcifications of the distal right ICA. No significant stenosis. No aneurysm. Right anterior cerebral artery: Unremarkable. No occlusion or significant stenosis. No aneurysm. Right middle cerebral artery: Unremarkable. No occlusion or significant stenosis. No aneurysm. Right posterior cerebral artery: Unremarkable. No occlusion or significant stenosis. No aneurysm. Right vertebral artery: Unremarkable as visualized. Left internal carotid artery: Mild atherosclerotic calcifications of the distal left ICA. No significant stenosis. No aneurysm. Left anterior cerebral artery: Unremarkable. No occlusion or significant stenosis. No aneurysm. Left middle cerebral artery: Unremarkable. No occlusion or significant stenosis. No aneurysm. Left posterior cerebral artery: Unremarkable. No occlusion or significant stenosis. No aneurysm. Left vertebral artery: Unremarkable as visualized. Basilar artery: Unremarkable. No occlusion or significant stenosis. No aneurysm. IMPRESSION: No significant stenosis, occlusion, or aneurysm in the central or large intracranial arteries. Electronically signed by: Yasmany Gómez M.D. 03/02/23 20:16 PM Neck CTA 03/02/23 18:39 Exam(s): CTA NECK With Contrast IV Amt: 116 ml optiray 350 EXAM: CT Angiography Neck With Intravenous Contrast CLINICAL HISTORY: Reason for exam: neuro deficit, acute stroke suspected. TECHNIQUE: Routine carotid CT angiography protocol was performed with intravenous contrast. NASCET criteria using the distal ICAs for comparison were used for evaluation of stenoses. CTDI is 11.62 mGy and DLP is 407 mGy-cm. Automated exposure control was utilized for the study. A dose lowering technique was utilized adhering to the principles of ALARA. MIP reconstructed images were created and reviewed. CONTRAST: Patient received 116 ml optiray 350 of IV contrast COMPARISON: None FINDINGS: VASCULATURE: Right common carotid artery: Unremarkable. No occlusion or significant stenosis. No dissection. Right internal carotid artery: Unremarkable. Extracranial segment is patent with no occlusion or significant stenosis. No dissection. Right external carotid artery: Unremarkable. No occlusion. Right vertebral artery: Unremarkable. No occlusion or significant stenosis. No dissection. Left common carotid artery: Unremarkable. No occlusion or significant stenosis. No dissection. Left internal carotid artery: Atherosclerotic calcifications in the left carotid bulb. No significant stenosis. No dissection. Left external carotid artery: Unremarkable. No occlusion. Left vertebral artery: Unremarkable. No occlusion or significant stenosis. No dissection. NECK: Bones/joints: Degenerative changes of the spine. Soft tissues: Unremarkable. Lung apices: Clear. CAROTID STENOSIS REFERENCE USING NASCET CRITERIA: % ICA stenosis = (1 - narrowest ICA diameter/diameter of distal cervical ICA) x 100. Mild - <50% stenosis. Moderate - 50-69% stenosis. Severe - 70-94% stenosis. Near occlusion - 95-99% stenosis. Occluded - 100% stenosis. IMPRESSION: No significant stenosis, occlusion, or dissection. Electronically signed by: Yasmany Gómez M.D. 03/02/23 20:12 PM Supervising Physician Co-Signing Physician Notes IM ATTENDING : Patient seen and examined. History obtained from patient and records. Preceding documentation by Ms. Corinna Law PA-C reviewed. FINAL ASSESSMENT AND PLAN as follows : Headache with left-sided numbness Recurrent episodes Left-sided numbness currently resolved TIA versus complicated migraine Recurrent PE on Xarelto Hyperlipidemia on statin Rx Hyperglycemia rule out DM Subclinical hypothyroidism Mood disorder at baseline Past tobacco abuse OBS Medical telemetry Neurochecks Continue aspirin for ischemic stroke prophylaxis TTE, MRI brain for TIA work-up Neurology consult Re: Left-sided numbness with headache symptoms Check hemoglobin A1c Recheck outpatient TSH next month DVT prophylaxis. Xarelto Full code Text document was generated using Georgina Goodman voice recognition software. It may contain grammatical or spelling errors. Kindly contact undersigned for clarification of any documentation item in question.
[2023-03-02 21:53] LABS: Thyroid Stimulating Hormone 5.231 uIu/ml (0.300-4.500)
--- NOTE | 2023-03-02 22:04 | Emergency Department Note ---
History of Present Illness General Chief complaint: TIA Symptoms Stated complaint: SIDE NUMBNESS, SPEECH SLURRED Time Seen by Provider: 03/02/23 18:38 History of Present Illness Provider complaint: Numbness Onset (ago): day(s) 2 Maximum Pain Intensity: 8 68-year-old female presents emergency department for left-sided facial numbness. Patient reports she has been having intermittent facial numbness for the last 2 days. Patient is on Xarelto. Patient reports she started having this numbness on and off at the beginning of the month. She states she went to [facility] was admitted overnight and was diagnosed with a TIA. The patient reports she never saw a neurologist and was not very happy with the care at [facility] so she came to this facility. She denies any chest pain difficulty breathing. No recent falls. Home Medications Medication Instructions Recorded Confirmed Type citalopram 20 mg tablet 20 mg PO QAM 02/13/22 03/02/23 History acetaminophen 500 mg tablet 500 mg PO Q6H PRN Pain 03/02/23 03/02/23 History aspirin 81 mg capsule 81 mg PO DAILY 03/02/23 03/02/23 History atorvastatin 80 mg tablet 80 mg PO HS 03/02/23 03/02/23 History rivaroxaban 10 mg tablet (Xarelto) 10 mg PO PM 03/02/23 03/02/23 History Allergies Allergy/AdvReac Type Severity Reaction Status Date / Time No Known Allergies Allergy Verified 03/02/23 20:11 Past Med/Surg History Medical History Depression HLD (hyperlipidemia) Obesity Pulmonary embolism Pulmonary infarction Small bowel obstruction x 3 last in 2017 Surgical History History of dilatation and curettage History of tubal ligation Hx of cholecystectomy Hx of colonoscopy Hx of hysterectomy Hx of sinus surgery Hx of tonsillectomy Family History Father , 52 - [place] Myocardial infarction Mother Stroke Brother Cancer brain cancer Social History Smoking Status: Never smoker Second Hand Exposure: No; Do You Dip or Chew Tobacco: No; Hx Alcohol Use: No Hx Substance Use: No Preferred Language: Montserratian Communication Ability: Effective Fibrous Plasterer Required: No Beliefs That Will Affect Care: Rastafari Rastafari Beliefs: Would 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 see 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 marital status: Current Living Situation: Spouse Current Living Situation Comment: single family home current occupational status: retired Feels Safe at Home: Yes Assistive Devices: None Physical Exam Vital Signs Vital Signs - 24 hr 03/02/23 18:32 03/02/23 19:30 03/02/23 19:41 Temperature 36.5 C Temperature Source Temporal Artery Scan Pulse Rate 67 57 L Pulse Rate [Apical] 58 L Pulse Rhythm Regular Pulse Strength Normal Respiratory Rate 20 16 16 Respiratory Effort / Characteristics Non-Labored Spontaneous Non-Labored Respiratory Depth Normal Normal Respiratory Pattern Regular Blood Pressure 132/71 Blood Pressure [Left Arm] 112/66 Blood Pressure Mean 91 Blood Pressure Mean [Left Arm] 81 Pulse Oximetry 97 95 98 Oxygen Delivery Method Room Air Room Air Room Air Sepsis Recent Fever Within 48 Hours No Sepsis New/Unexplained Change in Mental Status No Sepsis Action Taken by Nursing No Action Required 03/02/23 19:42 03/02/23 20:00 03/02/23 20:30 Temperature Temperature Source Pulse Rate 57 L 58 L 53 L Pulse Rate [Apical] Pulse Rhythm Pulse Strength Respiratory Rate 21 16 12 Respiratory Effort / Characteristics Respiratory Depth Respiratory Pattern Blood Pressure 126/73 138/81 Blood Pressure [Left Arm] Blood Pressure Mean 90 100 Blood Pressure Mean [Left Arm] Pulse Oximetry 97 97 96 Oxygen Delivery Method Room Air Room Air Room Air Sepsis Recent Fever Within 48 Hours Sepsis New/Unexplained Change in Mental Status Sepsis Action Taken by Nursing 03/02/23 21:19 03/02/23 21:32 Temperature Temperature Source Pulse Rate 60 54 L Pulse Rate [Apical] Pulse Rhythm Pulse Strength Respiratory Rate 18 15 Respiratory Effort / Characteristics Respiratory Depth Respiratory Pattern Blood Pressure 126/74 107/63 Blood Pressure [Left Arm] Blood Pressure Mean 91 77 Blood Pressure Mean [Left Arm] Pulse Oximetry 93 99 Oxygen Delivery Method Room Air Room Air Sepsis Recent Fever Within 48 Hours Sepsis New/Unexplained Change in Mental Status Sepsis Action Taken by Nursing Physical Exam GENERAL: oriented to person, place, and time. appears well-developed and well- nourished. HENT: Exam performed. - Head: Normocephalic and atraumatic. EYES: Conjunctivae and EOM are normal. Right eye exhibits no discharge. Left eye exhibits no discharge. No scleral icterus. NECK: Normal range of motion. Neck supple. No JVD present. CV: Normal rate, regular rhythm, normal heart sounds and intact distal pulses. There is no peripheral edema. Palpable radial pulses bue. PULM/CHEST: Effort normal and breath sounds normal. No respiratory distress. No stridor. no wheezes. no rales. ABD: The abdomen is soft. There is no tenderness. NEURO: NIHSS 0 SKIN: Skin is warm and dry. He is not diaphoretic. PSYCH: normal mood and affect. Behavior is normal. Judgment and thought content normal. Course Course 1837: The patient was evaluated in room B10. A complete history and physical exam was performed Cardiac monitoring: An order was placed for continuous cardiac monitoring. The monitor shows a rate of 60 with sinus rhythm interpreted by me No code stroke called this patient is on a DOAC and her symptoms began yesterday. 2034: Vital signs stable. Labs and imaging within normal limits. Patient will be admitted for neurology consult and further stroke/TIA work-up. Administered Medications Sodium Chloride (Nss 1000ml) 1,000 mls @ 100 mls/hr IV .Q10H ONE Stop: 03/03/23 06:54 Last Admin: 03/02/23 21:07 Dose: 100 mls/hr Documented By: MARQUES Discontinued Medications Ioversol (Ioversol 350 Mg 125ml Prefilled Syringe) 116 ml IV ONCE ONE Stop: 03/02/23 19:15 Last Admin: 03/02/23 21:35 Dose: Not Given Documented By: ELIJAH Ioversol (Optiray 320 100ml) 116 ml IV ONCE ONE Stop: 03/02/23 19:23 Last Admin: 03/02/23 19:23 Dose: 116 ml Documented By: YEN Ioversol (Ioversol 350 Mg 125ml Prefilled Syringe) 116 ml IV ONCE ONE Stop: 03/02/23 21:25 Last Admin: 03/02/23 21:24 Dose: 116 ml Documented By: YEN Medical Decision Making Laboratory Data Attestation: I reviewed the patient's lab results. 03/02/23 18:51 03/02/23 18:51 Lab Results 03/02/23 03/02/23 03/02/23 Range/Units 18:49 18:51 18:51 WBC 6.23 (4.8-10.8) K/ul RBC 4.46 (4.20-5.40) M/uL Hgb 13.3 (12.0-16.0) g/dl POC Hgb (12.0-16.0) g/dl Hct 39.2 (37.0-47.0) % POC Hct (37-47) % MCV 87.9 (80.0-100.0) fL MCH 29.8 (25.0-34.0) pg MCHC 33.9 (32.0-36.0) g/dL RDW Std Deviation 46.0 (36.4-46.3) fL RDW Coeff of Erick 14.3 (11.5-14.5) % Plt Count 192 (130-400) K/uL MPV 9.5 (9.4-12.4) fL Immature Gran % (Auto) 0.5 % Neut % (Auto) 52.8 % Lymph % (Auto) 36.8 % [place] % (Auto) 7.9 % Eos % (Auto) 1.4 % Baso % (Auto) 0.6 % Neut # (Auto) 3.29 (1.40-6.50) K/uL Lymph # (Auto) 2.29 (1.20-3.40) K/uL [place] # (Auto) 0.49 (0.11-0.59) K/uL Eos # (Auto) 0.09 (0.00-0.50) K/uL Baso # (Auto) 0.04 (0.00-0.20) K/uL Immature Gran # (Auto) 0.03 (0.01-0.20) K/uL PT 10.9 (9.0-12.0) Seconds INR 1.0 (0.9-1.1) APTT 25.4 (21.0-31.0) Seconds PTT Ratio 0.9 POC Sodium (135-144) mmol/L Sodium (136-145) mmol/L POC Potassium (3.3-5.0) mmol/L Potassium (3.5-5.1) mmol/L POC Chloride (101-112) mmol/L Chloride (98-107) mmol/L Carbon Dioxide (21-32) mmol/L POC Total CO2 (24-31) mmol/L Anion Gap (3-11) POC Anion Gap (16-25) mmol/L POC BUN (7-18) mg/dl BUN (6-23) mg/dl Creatinine (0.6-1.2) mg/dl POC Creatinine (0.6-1.3) mg/dl Est Cr Clr Drug Dosing Est GFR ( Amer) ml/min Est GFR (Non-Af Amer) ml/min BUN/Creatinine Ratio (10-20) Glucose (70-99(Fasting)) mg/dl POC Glucose 98 (70-99) mg/dl POC Glucose (other) (70-99) mg/dl Calcium (8.6-10.3) mg/dl POC Ioniz Calcium Marline (1.12-1.32) mmol/l Magnesium (1.7-2.4) mg/dl Total Bilirubin (0.2-1.0) mg/dl AST (13-39) U/L ALT (7-52) U/L Alkaline Phosphatase (34-104) U/L Troponin I High Sens (0-14) pg/ml Total Protein (6.0-8.3) gm/dl Albumin (3.4-5.0) gm/dl Globulin (2.5-4.0) gm/dl Albumin/Globulin Ratio (0.9-2) TSH (0.300-4.500) uIu/ml Anaplasma Smear See Comment Babesia Smear See Comment Blood Type Antibody Screen 03/02/23 03/02/23 03/02/23 Range/Units 18:51 18:51 19:01 WBC (4.8-10.8) K/ul RBC (4.20-5.40) M/uL Hgb (12.0-16.0) g/dl POC Hgb 13.6 (12.0-16.0) g/dl Hct (37.0-47.0) % POC Hct 40 (37-47) % MCV (80.0-100.0) fL MCH (25.0-34.0) pg MCHC (32.0-36.0) g/dL RDW Std Deviation (36.4-46.3) fL RDW Coeff of Erick (11.5-14.5) % Plt Count (130-400) K/uL MPV (9.4-12.4) fL Immature Gran % (Auto) % Neut % (Auto) % Lymph % (Auto) % [place] % (Auto) % Eos % (Auto) % Baso % (Auto) % Neut # (Auto) (1.40-6.50) K/uL Lymph # (Auto) (1.20-3.40) K/uL [place] # (Auto) (0.11-0.59) K/uL Eos # (Auto) (0.00-0.50) K/uL Baso # (Auto) (0.00-0.20) K/uL Immature Gran # (Auto) (0.01-0.20) K/uL PT (9.0-12.0) Seconds INR (0.9-1.1) APTT (21.0-31.0) Seconds PTT Ratio POC Sodium 140 (135-144) mmol/L Sodium 138 (136-145) mmol/L POC Potassium 3.9 (3.3-5.0) mmol/L Potassium 4.0 (3.5-5.1) mmol/L POC Chloride 106 (101-112) mmol/L Chloride 106 (98-107) mmol/L Carbon Dioxide 26 (21-32) mmol/L POC Total CO2 22 L (24-31) mmol/L Anion Gap 6 (3-11) POC Anion Gap 17.0 (16-25) mmol/L POC BUN 23 H (7-18) mg/dl BUN 24 H (6-23) mg/dl Creatinine 0.97 (0.6-1.2) mg/dl POC Creatinine 1.1 (0.6-1.3) mg/dl Est Cr Clr Drug Dosing Not Reportable Est GFR ( Amer) 70.0 ml/min Est GFR (Non-Af Amer) 60.4 ml/min BUN/Creatinine Ratio 24.7 H (10-20) Glucose 96 (70-99(Fasting)) mg/dl POC Glucose (70-99) mg/dl POC Glucose (other) 94 (70-99) mg/dl Calcium 9.9 (8.6-10.3) mg/dl POC Ioniz Calcium Marline 1.23 (1.12-1.32) mmol/l Magnesium 2.0 (1.7-2.4) mg/dl Total Bilirubin 0.6 (0.2-1.0) mg/dl AST 34 (13-39) U/L ALT 23 (7-52) U/L Alkaline Phosphatase 75 (34-104) U/L Troponin I High Sens 3.7 (0-14) pg/ml Total Protein 6.8 (6.0-8.3) gm/dl Albumin 4.4 (3.4-5.0) gm/dl Globulin 2.4 L (2.5-4.0) gm/dl Albumin/Globulin Ratio 1.8 (0.9-2) TSH (0.300-4.500) uIu/ml Anaplasma Smear Babesia Smear Blood Type O Positive Antibody Screen NEGATIVE 03/02/23 Range/Units 21:00 WBC (4.8-10.8) K/ul RBC (4.20-5.40) M/uL Hgb (12.0-16.0) g/dl POC Hgb (12.0-16.0) g/dl Hct (37.0-47.0) % POC Hct (37-47) % MCV (80.0-100.0) fL MCH (25.0-34.0) pg MCHC (32.0-36.0) g/dL RDW Std Deviation (36.4-46.3) fL RDW Coeff of Erick (11.5-14.5) % Plt Count (130-400) K/uL MPV (9.4-12.4) fL Immature Gran % (Auto) % Neut % (Auto) % Lymph % (Auto) % [place] % (Auto) % Eos % (Auto) % Baso % (Auto) % Neut # (Auto) (1.40-6.50) K/uL Lymph # (Auto) (1.20-3.40) K/uL [place] # (Auto) (0.11-0.59) K/uL Eos # (Auto) (0.00-0.50) K/uL Baso # (Auto) (0.00-0.20) K/uL Immature Gran # (Auto) (0.01-0.20) K/uL PT (9.0-12.0) Seconds INR (0.9-1.1) APTT (21.0-31.0) Seconds PTT Ratio POC Sodium (135-144) mmol/L Sodium (136-145) mmol/L POC Potassium (3.3-5.0) mmol/L Potassium (3.5-5.1) mmol/L POC Chloride (101-112) mmol/L Chloride (98-107) mmol/L Carbon Dioxide (21-32) mmol/L POC Total CO2 (24-31) mmol/L Anion Gap (3-11) POC Anion Gap (16-25) mmol/L POC BUN (7-18) mg/dl BUN (6-23) mg/dl Creatinine (0.6-1.2) mg/dl POC Creatinine (0.6-1.3) mg/dl Est Cr Clr Drug Dosing Est GFR ( Amer) ml/min Est GFR (Non-Af Amer) ml/min BUN/Creatinine Ratio (10-20) Glucose (70-99(Fasting)) mg/dl POC Glucose (70-99) mg/dl POC Glucose (other) (70-99) mg/dl Calcium (8.6-10.3) mg/dl POC Ioniz Calcium Marline (1.12-1.32) mmol/l Magnesium (1.7-2.4) mg/dl Total Bilirubin (0.2-1.0) mg/dl AST (13-39) U/L ALT (7-52) U/L Alkaline Phosphatase (34-104) U/L Troponin I High Sens (0-14) pg/ml Total Protein (6.0-8.3) gm/dl Albumin (3.4-5.0) gm/dl Globulin (2.5-4.0) gm/dl Albumin/Globulin Ratio (0.9-2) TSH 5.231 H (0.300-4.500) uIu/ml Anaplasma Smear Babesia Smear Blood Type Antibody Screen Imaging Data Attestation: I personally reviewed and interpreted this imaging study as follow s: My Impression: CT head: No [facility] Radiologist's Impression: Chest X-Ray 03/02/23 18:39 SINGLE VIEW CHEST CLINICAL HISTORY: Neurologic deficit. Stroke like symptoms. FINDINGS: An AP, portable, upright chest radiograph is compared to study dated 06/18/2022. The examination is degraded by portable technique and apical lordotic positioning. The cardiomediastinal silhouette is unremarkable. There is mild bibasilar scarring/atelectasis. The lungs and pleural spaces are otherwise clear. No pneumothorax is seen. The skeletal structures are osteopenic. The bony thorax is grossly intact. IMPRESSION: No active disease in the chest. ACT 112: Negative or not required by law. Electronically signed by: Keith Waters M.D. 03/02/2023 7:[address] 03/02/23 18:39 Exam(s): CT HEAD Without Contrast EXAM: CT Head Without Intravenous Contrast CLINICAL HISTORY: Reason for exam: neuro deficit, acute stroke suspected. TECHNIQUE: Axial computed tomography images of the head/brain without intravenous contrast. CTDI is 37.87 mGy and DLP is 546.36 mGy-cm. Automated exposure control was utilized for the study. A dose lowering technique was utilized adhering to the principles of ALARA. COMPARISON: None FINDINGS: Brain: No acute infarct or hemorrhage. No extra-axial fluid collection. No mass effect or midline shift. Ventricles and sulci: Normal. No ventriculomegaly or intraventricular hemorrhage. Bones: Normal. No bony lesion or acute fracture. Subcutaneous tissues: Normal. Sinuses: Mild mucosal thickening in the left maxillary sinus. Severe mucosal thickening of the left sphenoid sinus. Mild mucosal thickening in the right sphenoid sinus. Hyperostosis of the rayo of the sphenoid sinuses, suggesting component of chronic sinusitis. Mild mucosal thickening in the ethmoid air cells. Mastoid air cells: Normal. Orbits: Grossly unremarkable. Other: Mild atherosclerotic changes in the intracranial vasculature. IMPRESSION: 1. No acute intracranial abnormality. 2. Paranasal sinus disease. Electronically signed by: Yasmany Gómez M.D. 03/02/23 20:07 PM Head CTA 03/02/23 18:39 Exam(s): CTA HEAD With Contrast IV Amt: 116 ml optiray 350 EXAM: CT Angiography Head With Intravenous Contrast CLINICAL HISTORY: Reason for exam: neuro deficit, acute stroke suspected. TECHNIQUE: Axial computed tomographic angiography images of the head with intravenous contrast. CTDI is 18.68 mGy and DLP is 407.76 mGy-cm. Automated exposure control was utilized for the study. A dose lowering technique was utilized adhering to the principles of ALARA. MIP reconstructed images were created and reviewed. CONTRAST: Patient received 116 ml optiray 350 of IV contrast COMPARISON: None FINDINGS: Right internal carotid artery: Mild atherosclerotic calcifications of the distal right ICA. No significant stenosis. No aneurysm. Right anterior cerebral artery: Unremarkable. No occlusion or significant stenosis. No aneurysm. Right middle cerebral artery: Unremarkable. No occlusion or significant stenosis. No aneurysm. Right posterior cerebral artery: Unremarkable. No occlusion or significant stenosis. No aneurysm. Right vertebral artery: Unremarkable as visualized. Left internal carotid artery: Mild atherosclerotic calcifications of the distal left ICA. No significant stenosis. No aneurysm. Left anterior cerebral artery: Unremarkable. No occlusion or significant stenosis. No aneurysm. Left middle cerebral artery: Unremarkable. No occlusion or significant stenosis. No aneurysm. Left posterior cerebral artery: Unremarkable. No occlusion or significant stenosis. No aneurysm. Left vertebral artery: Unremarkable as visualized. Basilar artery: Unremarkable. No occlusion or significant stenosis. No aneurysm. IMPRESSION: No significant stenosis, occlusion, or aneurysm in the central or large intracranial arteries. Electronically signed by: Yasmany Góemz M.D. 03/02/23 20:16 PM Neck CTA 03/02/23 18:39 Exam(s): CTA NECK With Contrast IV Amt: 116 ml optiray 350 EXAM: CT Angiography Neck With Intravenous Contrast CLINICAL HISTORY: Reason for exam: neuro deficit, acute stroke suspected. TECHNIQUE: Routine carotid CT angiography protocol was performed with intravenous contrast. NASCET criteria using the distal ICAs for comparison were used for evaluation of stenoses. CTDI is 11.62 mGy and DLP is 407 mGy-cm. Automated exposure control was utilized for the study. A dose lowering technique was utilized adhering to the principles of ALARA. MIP reconstructed images were created and reviewed. CONTRAST: Patient received 116 ml optiray 350 of IV contrast COMPARISON: None FINDINGS: VASCULATURE: Right common carotid artery: Unremarkable. No occlusion or significant stenosis. No dissection. Right internal carotid artery: Unremarkable. Extracranial segment is patent with no occlusion or significant stenosis. No dissection. Right external carotid artery: Unremarkable. No occlusion. Right vertebral artery: Unremarkable. No occlusion or significant stenosis. No dissection. Left common carotid artery: Unremarkable. No occlusion or significant stenosis. No dissection. Left internal carotid artery: Atherosclerotic calcifications in the left carotid bulb. No significant stenosis. No dissection. Left external carotid artery: Unremarkable. No occlusion. Left vertebral artery: Unremarkable. No occlusion or significant stenosis. No dissection. NECK: Bones/joints: Degenerative changes of the spine. Soft tissues: Unremarkable. Lung apices: Clear. CAROTID STENOSIS REFERENCE USING NASCET CRITERIA: % ICA stenosis = (1 - narrowest ICA diameter/diameter of distal cervical ICA) x 100. Mild - <50% stenosis. Moderate - 50-69% stenosis. Severe - 70-94% stenosis. Near occlusion - 95-99% stenosis. Occluded - 100% stenosis. IMPRESSION: No significant stenosis, occlusion, or dissection. Electronically signed by: Yasmany Góemz M.D. 03/02/23 20:12 PM ECG Data Attestation: I personally reviewed and interpreted this ECG as follows: Rate (beats per minute): 62 Rhythm: + normal sinus ECG Intervals/blocks: + First degree AV block and + Normal QT-c ECG ST segments: + Normal ST segments Additional Comments: QRS 70 MDM Narrative 1838: The patient was evaluated in room B10. A complete history and physical exam was performed Cardiac monitoring: An order was placed for continuous cardiac monitoring. The monitor shows a rate of 60 with sinus rhythm interpreted by me No code stroke called this patient is on a DOAC and her symptoms began yeste rd. 2034: Vital signs stable. Labs and imaging within normal limits. Patient will be admitted for neurology consult and further stroke/TIA work-up. Impression & Plan Brain TIA Discharge Plan Visit Data Chief Complaint: TIA Symptoms Stated Complaint: SIDE NUMBNESS, SPEECH SLURRED ED Provider: Bao Weinstein Discharge Problem: Brain TIA Patient Disposition: Being Evaluated by Hospitalist Forms Stand Alone Forms: My [facility] Prescriptions Prescriptions: No Action citalopram 20 mg tablet 20 mg PO QAM atorvastatin 80 mg tablet 80 mg PO HS acetaminophen [Tylenol Ex Str Rapid Release] 500 mg Tablet 500 mg PO Q6H PRN (Reason: Pain) Xarelto 10 mg tablet 10 mg PO PM aspirin 81 mg Capsule 81 mg PO DAILY Referrals Referrals: Cassy Nicole MD [Primary Care Provider] -
[2023-03-02 22:23] LABS: Lyme Ab IgG w/WB Rflx Negative (Negative); Lyme Ab IgM w/WB Rflx Negative (Negative)
[2023-03-02 22:25] LABS: T4 Free Thyroxine 1.05 ng/dl (0.61-1.60)
[2023-03-02] MEDS ORDERED: ATORVASTATIN 40 MG TAB PO STA (23:26)
[2023-03-02] MEDS ORDERED: RIVAROXABAN 10 MG TABLET PO STA (23:26)
[2023-03-02] MEDS ORDERED: LORazepam 0.5 MG TAB PO PRN (23:33)
[2023-03-02] MEDS ORDERED: PROMETHAZINE HCL 12.5 MG in SODIUM CHLORIDE 0.9% 50 ML IV PRN (23:33)
[2023-03-02] MEDS ORDERED: oxyCODONE HCL IR 5 MG TAB (IMMEDIATE RELEASE) PO PRN (23:33)
[2023-03-03] MEDS ORDERED: traMADol HCL 50 MG TABLET PO PRN (00:20)
[2023-03-03] MEDS ORDERED: GADOBUTROL 65ML VIAL IV ONE (01:00)
[2023-03-03] MEDS ORDERED: PHARMACIST DISCHARGE MED REC CONSULT PRN (01:35)
[2023-03-03] MEDS ORDERED: ACETAMINOPHEN 325 MG TAB PO PRN (01:35)
--- NOTE | 2023-03-03 01:59 | Magnetic Resonance Report ---
Exam(s): MRI HEAD W/WO Contrast IV Amt: 9.5cc gadavist EXAM: MR Head Without and With Intravenous Contrast CLINICAL HISTORY: Reason for exam: montez. TECHNIQUE: Magnetic resonance images of the head/brain without and with intravenous contrast in multiple planes. CONTRAST: Patient received 9.5cc gadavist of IV contrast COMPARISON: Comparison is made to prior head CT from March 02, 2023. FINDINGS: Brain: Mild nonspecific white matter changes. The flow voids at the base of the brain are intact. No mass. No hemorrhage. No acute infarct. No evidence of abnormal enhancement. Ventricles: Unremarkable. No ventriculomegaly. Bones/joints: Hyperostosis frontalis interna. Sinuses: Chronic left sphenoid and ethmoid sinusitis. No acute sinusitis. Mastoid air cells: Unremarkable as visualized. No mastoid effusion. Orbits: Unremarkable as visualized. IMPRESSION: No evidence of acute intracranial pathology. Mild nonspecific right matter changes. Electronically signed by: Ryanne Rhodes MD 03/03/23 01:58 AM
[2023-03-03 06:53] LABS: Basophils # (auto) 0.03 K/uL (0.00-0.20); Basophils % (auto) 0.6 %; Eosinophils # (auto) 0.11 K/uL (0.00-0.50); Eosinophils % (auto) 2.4 %; Hematocrit (blood only) 34.9 % (37.0-47.0); Hemoglobin 11.6 g/dl (12.0-16.0); Immature Granulocytes # (auto) 0.03 K/uL (0.01-0.20); Immature Granulocytes % (auto) 0.6 %; Lymphocytes # (auto) 1.48 K/uL (1.20-3.40); Lymphocytes % (auto) 31.8 %; Mean Corpuscular Hemoglobin 28.9 pg (25.0-34.0); Mean Corpuscular Hgb Conc 33.2 g/dL (32.0-36.0); Monocytes # (auto) 0.59 K/uL (0.11-0.59); Monocytes % (auto) 12.7 %; Neutrophils # (auto) 2.42 K/uL (1.40-6.50); Neutrophils % (auto) 51.9 %; Platelet Count 166 K/uL (130-400); RDW Coefficient of Variation 14.5 % (11.5-14.5); RDW Standard Deviation 46.1 fL (36.4-46.3); Red Blood Count 4.01 M/uL (4.20-5.40); White Blood Count 4.66 K/ul (4.8-10.8)
[2023-03-03 07:22] LABS: BUN Creatinine Ratio 28.2 (10-20); Calcium 8.7 mg/dl (8.6-10.3); Chol HDL Ratio 3.3 (0-5); Creatinine Clr Calc Pharmacy 77.5 ml/min; Est GFR (African American) 91.2 ml/min; Est GFR (Non-African American) 78.7 ml/min; Potassium 4.1 mmol/L (3.5-5.1)
[2023-03-03] MEDS ORDERED: PNEUMOCOCCAL Polysaccharide Vaccine 25mcg/0.5mL vial/Syr IM ONE (09:00)
[2023-03-03] MEDS: CITALOPRAM 20 MG TAB PO SCH (09:48)
[2023-03-03] MEDS: ASPIRIN 81 MG ECTAB PO SCH (09:48)
--- NOTE | 2023-03-03 11:41 | Neurology Consultation ---
Date of Consultation March 03, 2023 Assessment & Plan (1) Stroke-like symptoms: (2) Headache: Plan This patient has had multiple episodes in the last month of fairly stereotyped symptoms including significant numbness and tingling in the left face, arm, and, sometimes, leg. There would be weakness in the arm and occasional facial droop. She would have some slurred speech or difficulty saying words during this and sometimes would get a headache before or after, but some spells, like this morning, had no headache associated. She has complete resolution of all symptoms by 15-20 minutes. Extensive evaluation is unremarkable with no vascular stenoses or anomalies. MRI of the brain is normal for age with only a few nonspecific small-vessel ischemic changes. He did not have a stroke. She is on Xarelto for recurrent PE and has no heart issues Overall, I suspect that these stereotypical spells represent vasospasm (migraine variant). These do not seem to be associated with seizure activity, although there is some twisting of her left hand at times with the episode. If these were focal seizures, I would expect a right hemispheric lesion driving these which she does not have. I do not think these represent TIAs. Stereotyped recurrent TIAs are possible but tend to have a vascular lesion associated. Recommendations: 1. Continue with 81 mg aspirin and Xarelto daily. We could consider switching aspirin to clopidogrel 75 mg daily (or every other day) but this would increased bleeding and bruising risk in this patient. 2. Consider initiating valproic acid (Depakote) 500 mg twice a day to prevent vasospasm/migraines (and "cover" her if these were, by chance, a type of partial seizure). 3. I do not have any other additional neurologic testing or treatment recommendations to make but I would follow her as an outpatient (2-3 weeks with PA) Overall, I spent a total of 80 minutes with this case including review of records, review of MRI films, direct evaluation of the patient at bedside, report generation, and discussing the case with the patient and at bedside and Dr. Alvarez including differential diagnosis and treatment options. History of Present Illness Reason for Consultation: Patient is a 68-year-old, who I was asked to see at the request of Dr. Marcus, for neurologic consultation regarding unusual episodes Requesting Physician: Dr. Marcus Attending Physician: Barbara Alvarez MD History of Present Illness Patient has a history of PEs in the past on Xarelto. She does not have any history of migraine headaches, hypertension, diabetes, heart disease, or stroke. Starting 1 month ago she has been getting unusual stereotyped episodes. Her 1st episode involved numbness and tingling in the left face, arm, and leg lasting 30 minutes. She went to [facility] and was admitted. Evaluation showed no stroke and she was told that she had a TIA. She was given aspirin and has been on 81 mg daily since. Her Lipitor was increased as well. Is that time she is had 5 or 6 more episodes each lasting a little less than the 1st 1 at about 15-20 minutes. She will start getting some tingling in her left face and cheek including inside the mouth. It would not involve the forehead. It would then traveled down the arm to the hands and fingers in her fingers may contract or twist. On occasion it might involve the leg. The arm is weak but the leg is not. She will have some hindrance of her speech and getting words out. They can be slurry but she can be understood, according to the who was present at bedside. She denies any confusion or lack of memory with these spells. She can get a headache up to 2 hours before 1 of the spells and it could be a right occipital sharp pain or a dull left frontal pain. In addition she might get a headache after the spell is over starting in the right occipital head region. She had a somewhat intense spell in the evening of May 02. She had the typical mouth, face, and arm numbness and tingling with weakness in the left arm and facial droop on the left. Her speech was affected. She arrived to the emergency room and temperature was 36.5, pulse 67, respiratory rate 20, blood pressure 132/71, O2 saturation 97%. Her exam was normal without focal deficit. CBC and Chem profile were unremarkable. CT scan of the head was unremarkable and CT angiography of the head neck showed no vascular stenoses or anomalies. Chest x-ray was unr emarkable. MRI of the brain showed no new stroke. There was minimal old small-vessel ischemia seen. This morning around 0700 she had another 20 minute episode of numbness in her face and arm without any headache before, during, or after. Vital signs were stable. Currently she has no headache or symptoms. Allergies Allergy/AdvReac Type Severity Reaction Status Date / Time No Known Allergies Allergy Verified 03/02/23 20:11 Home Medications Medication Instructions Recorded Confirmed Type citalopram 20 mg tablet 20 mg PO QAM 02/13/22 03/02/23 History acetaminophen 500 mg tablet 500 mg PO Q6H PRN Pain 03/02/23 03/02/23 History aspirin 81 mg capsule 81 mg PO DAILY 03/02/23 03/02/23 History atorvastatin 80 mg tablet 80 mg PO HS 03/02/23 03/02/23 History rivaroxaban 10 mg tablet (Xarelto) 10 mg PO PM 03/02/23 03/02/23 History Patient History Medical History Depression History of pulmonary embolism HLD (hyperlipidemia) Obesity Pulmonary embolism Pulmonary infarction Small bowel obstruction x 3 last in 2018 Surgical History History of dilatation and curettage History of tubal ligation Hx of cholecystectomy Hx of colonoscopy Hx of hysterectomy Hx of sinus surgery Hx of tonsillectomy Family History Father , 52 - [place] Myocardial infarction Mother Stroke Brother Cancer brain cancer Social History Smoking Status: Former smoker Second Hand Exposure: No; Do You Dip or Chew Tobacco: No; Hx Alcohol Use: No Hx Substance Use: No Preferred Language: Romansh Communication Ability: Effective 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 Beliefs That Will Affect Care: None marital status: Current Living Situation: Spouse Current Living Situation Comment: single family home current occupational status: retired Other Information That Helps Us Care for You: No Feels Safe at Home: Yes Safety Concerns: Feels Safe At This Time Assistive Devices: None Review of Systems Constitutional: no fever, no fatigue and no weakness Eyes: no diplopia, no eye pain and no worsening vision Ear, Nose, Mouth, Throat: no ear pain, no tinnitus, no hearing loss, no d izziness, no snoring, no hoarseness and no dysphagia Respiratory: no cough and no dyspnea Cardiovascular: no chest pain, no palpitations and no lightheadedness Gastrointestinal: no abdominal pain, no nausea and no vomiting Genitourinary: no dysuria, no urinary frequency and no urinary incontinence Musculoskeletal: no back pain, no neck pain, no radicular pain, no joint pain and no myalgia Integumentary: no rash and no lesions Neurologic: no gait abnormality, no localized weakness, no generalized weakness, no tingling, no numbness, no tremor(s), no abnormal movements, no headache(s), no abnormal speech, no confusion and no memory loss Psychiatric: no depression, no irritability, no anxiety, no difficulty concentrating, no confusion and no hallucinations Endocrine: no fatigue and no flushing Hematologic / Lymphatic: no easy bleeding and no easy bruising Allergy / Immunological: no urticaria and no problem reported Exam (Neuro) Physical Exam: The patient is right-handed. The patient is awake, alert, and attentive. Speech is normal without any aphasia or dysarthria. The patient can name objects, repeat phrases, and has normal spontaneous speech. Mentation and thought processes are intact, with orientation to person, place and time, and normal fund of knowledge. Attention and concentration are normal. Mood and affect are normal and appropriate. General appearance and grooming are normal. Short and long-term memory are intact to conversation. Pupils are 4 mm bilaterally and reactive to light. Extraocular eye muscles are intact without nystagmus. Visual acuity and visual moody seem normal grossly to confrontation. There are no deficits to sensation in the face in all 3 distributions of the fifth cranial nerve bilaterally. Corneal reflexes are positive bilaterally. Facial strength and symmetry was normal bilaterally. Hearing seems normal bilaterally. Palate moves well without asymmetry. There is normal sternocleidomastoid and trapezius (shoulder shrug) strength bilaterally. Tongue is midline with good strength bilaterally. Neck has a full range of motion without discomfort. There are no cervical bruits bilaterally. There are no cranial or ocular bruits. Heart is without murmur. There is a regular rhythm and rate. Cervical, thoracic, and lumbar spine are nontender to palpation. Gait is narrow based, with good arm swing, turns, and stance. Balance is normal eyes open or closed. With outstretched arms there is no drift. There are no resting, postural, or action tremors. There is no ataxia with finger to nose testing. There is good facility in the hands. No other abnormal involuntary movements are noted. Motor strength is 5/5 diffusely in the arms bilaterally including deltoids, biceps, triceps, brachioradialis, wrist flexors and extensors, money market dealer, and intrinsic hand muscles. Motor strength is 5/5 diffusely in the legs bilaterally including hip flexors, quadriceps, hamstrings, gastrocnemius, tibialis anterior, tibialis posterior, and Peroneii muscles. Toe extensors are normal and there is good bulk in the extensor digitorum brevis muscles bilaterally. The limbs have good tone without rigidity or spasticity. There is no atrophy noted in the muscles. Muscle bulk is normal, there is no tenderness to palpation, no myotonia to percussion, and no fasciculations seen. Sensory examination is intact to touch and pin throughout all 4 limbs diffusely. Reflexes are 2/4 in the biceps, triceps, brachioradialis, quadriceps, and Achilles tendons bilaterally. There is no clonus bilaterally. Toes are downgoing with plantar stimulation bilaterally. Peripheral pulses are present and of normal quality distally in all 4 limbs. There is no peripheral edema noted in the limbs. Results & Data Vital Signs (Past 12 Hours) Vital Signs Temp Pulse Pulse Resp BP BP Pulse Ox 03/03/23 09:13 36.6 C 61 16 103/62 95 03/03/23 01:30 66 03/03/23 01:47 03/03/23 01:47 36.5 C 62 18 121/56 L 98 03/03/23 01:35 36.5 C 62 18 121/56 L 98 03/03/23 01:35 03/03/23 00:00 64 19 103/49 L 03/02/23 23:30 62 13 107/69 Pulse Ox O2 Del Method O2 Del Method 03/03/23 09:13 Room Air 03/03/23 01:30 03/03/23 01:47 Room Air 03/03/23 01:47 Room Air 03/03/23 01:35 Room Air 03/03/23 01:35 98 Room Air 03/03/23 00:00 03/02/23 23:30 PG Care Time/CCT Total # of Minutes Spent Total Time Spent with Patient: Total time spent is greater than 50% in coordination of care (as documented) at patient's floor/unit and/or counseling patient: Coding Level of Care Code 39497 IN/OBS CONSULT LVL 5,80M Diagnoses Stroke-like symptoms R29.90 Headache R51.9 Time Spent (min) 75
[2023-03-03] MEDS: VALPROIC ACID SOLN 500 MG/10 ML UDC PO SCH ×2 (14:40→20:22)
--- NOTE | 2023-03-03 15:39 | Hospitalist Progress Note ---
Date of Service March 03, 2023 Assessment & Plan (1) Stroke-like symptoms: (2) Headache: (3) History of pulmonary embolism: (4) Depression: (5) HLD (hyperlipidemia): Plan Ms. Chew is a 68-year-old female with PMH of recurrent pulmonary emboli in 2016 and 2021 on anticoagulation, hyperlipidemia, depression and other medical problems listed below who presents with left-sided weakness. Patient has undergone expensive and repeated stroke/neurologic work up, which has not re vealed any abnormalities that would contribute to degree of patient's symptoms. Neurology consulted with high suspicion for vasopasm, migraine variant. #Headache #Stroke-like symptoms -Marked by left sided hemiparesis with prompt resolution, up to 6-8 episodes a day; however, imaging with out vascular narrowing, infarct, or structural abnormalities to explain degree of symptomatology Neurology on consult, suspect vasospam, migraine variant v possible seizure activity -Continue to monitor on telemetry -Neurochecks - Continue with 81 mg aspirin and Xarelto daily, with OP neurology follow up to consider future transition of asa to plavix, will defer given low suspicion of TIA and high risk of bled - Start Valproic acid 500mg BID for vasospasm/migraine/partial seizure -Plan for OP neuro follow up with [facility] 2-3 weeks #Recurrent PE-Continue Xarelto #HLD-Continue statin Recurrent PE on Xarelto #Hyperglycemia-improved #Subclinical hypothyroidism- TSH 5.231, FT4 1.05 #Mood disorder at baseline- Continue citlopram #Past tobacco abuse CTM DVT Prophylaxis: Xarelto Full Code Admission and Anticipated Discharge Date Admission Date: March 03, 2023 Anticipated date of discharge: 03/04/23 Subjective Admitted overnight Approximately 0800 this morning, code stroke called for patient. Patient was evaluated at bedside, in which she reports one of her "episodes" marked by left UE/LE weakness. Shortly after arrival, patient states her symptoms were dissipating. She endorsed a mild headache, but denied any vision changes, aphasia, memory loss/loss of consciousness, or other neurologic symptoms aside from the marked weakness. Patient states the symptoms have been ongoing since early February and she is unable to parse out any provoking factors that precipitate her symptoms. She notes most times it is associated with a headache and occasional left vision blurriness/pixelation. Today, she denies any chest pain, palpitations, nausea/vomiting, vertigo, or other symptoms. Review of Systems Constitutional: as per Subjective / HPI Physical Exam Constitutional: WD/WN, vitals as above Eyes: PERRL, conjunctivae normal, anicteric sclerae ENMT: external ear and nose normal, oropharynx normal Neck: trachea midline, no thyromegaly Cardiovascular: RRR, no murmur, no edema Gastrointestinal (Abdomen): normal bowel sounds, soft, nontender, no hepatosplenomegaly Musculoskeletal: motor strength 4/5 of bilateral upper/lower extremities Skin: no rashes, warm and dry Neurologic: CN II-XII intact on formal examination, muscle weakness 4/5 noted in proximal muscle groups of upper and lower extremities. Neurologic testing immediately after resolution of symptoms did not yield focal deficit Psychiatric: A+Ox3, euthymic affect Results & Data Results & Data Vital Signs (Past 12 Hours) Vital Signs Temp Pulse Pulse Resp BP Pulse Ox O2 Del Method 03/03/23 15:16 36.9 C 57 L 16 100/58 L 96 Room Air 03/03/23 12:00 36.5 C 60 18 114/63 98 Room Air 03/03/23 07:00 50 L 03/03/23 09:13 36.6 C 61 16 103/62 95 Room Air Laboratory Results Short CBC 03/02/23 03/03/23 Range/Units 18:51 05:35 WBC 6.23 4.66 L (4.8-10.8) K/ul Hgb 13.3 11.6 L (12.0-16.0) g/dl Hct 39.2 34.9 L (37.0-47.0) % Plt Count 192 166 (130-400) K/uL [facility] 03/02/23 03/03/23 18:51 05:35 Sodium 138 139 Potassium 4.0 4.1 Chloride 106 111 H Carbon Dioxide 26 23 BUN 24 H 22 Creatinine 0.97 0.78 Glucose 96 82 Calcium 9.9 8.7 Liver Function 03/02/23 Range/Units 18:51 Total Bilirubin 0.6 (0.2-1.0) mg/dl AST 34 (13-39) U/L ALT 23 (7-52) U/L Alkaline Phosphatase 75 (34-104) U/L Albumin 4.4 (3.4-5.0) gm/dl Diagnostic Findings CTA Head/Neck on admission (03/02) without acute stenosis, occlusion, or dissection Medications Administered Home Medications Medication Instructions Recorded Confirmed Last Taken citalopram 20 mg tablet 20 mg PO QAM 02/13/22 03/02/23 03/02/23 acetaminophen 500 mg tablet 500 mg PO Q6H PRN Pain 03/02/23 03/02/23 03/01/23 aspirin 81 mg capsule 81 mg PO DAILY 03/02/23 03/02/23 Unknown atorvastatin 80 mg tablet 80 mg PO HS 03/02/23 03/02/23 03/01/23 rivaroxaban 10 mg tablet (Xarelto) 10 mg PO PM 03/02/23 03/02/23 03/01/23 Active Medications Generic Name Dose Route Start Last Admin Trade Name Freq PRN Reason Stop Dose Admin Aspirin 81 mg 03/03/23 09:00 03/03/23 09:48 Aspirin 81 Mg Ectab PO 04/02/23 08:59 81 mg DAILY PATRICIA Administration Citalopram Hydrobromide 20 mg 03/03/23 09:00 03/03/23 09:48 Citalopram 20 Mg Tab PO 04/02/23 08:59 20 mg QAM PATRICIA Administration Tramadol HCl 25 - 50 mg 03/03/23 00:20 03/03/23 02:07 Tramadol Hcl 50 Mg Tablet PO 04/02/23 00:19 50 mg Q4H PRN Administration Pain Valproic Acid 500 mg 03/03/23 11:30 03/03/23 14:40 Valproic Acid Soln 500 Mg/10 Ml Udc PO 04/02/23 11:29 500 mg BID PATRICIA Administration (2) Headache Headache type: unspecified
[2023-03-03] MEDS ORDERED: RIVAROXABAN 10 MG TABLET PO SCH (21:00)
[2023-03-03] MEDS ORDERED: ATORVASTATIN 40 MG TAB PO SCH (21:00)
[2023-03-04] MEDS: CITALOPRAM 20 MG TAB PO SCH (09:41)
[2023-03-04] MEDS: ASPIRIN 81 MG ECTAB PO SCH (09:41)
[2023-03-04] MEDS: VALPROIC ACID SOLN 500 MG/10 ML UDC PO SCH (09:41)
[2023-03-04 09:48] LABS: Hematocrit (blood only) 38.8 % (37.0-47.0); Hemoglobin 13.2 g/dl (12.0-16.0); Mean Corpuscular Hemoglobin 29.3 pg (25.0-34.0); Mean Platelet Volume 9.9 fL (9.4-12.4); Platelet Count 190 K/uL (130-400); RDW Coefficient of Variation 14.6 % (11.5-14.5); RDW Standard Deviation 45.8 fL (36.4-46.3); Red Blood Count 4.51 M/uL (4.20-5.40); White Blood Count 4.47 K/ul (4.8-10.8)
[2023-03-04 10:06] LABS: BUN Creatinine Ratio 20.3 (10-20); Calcium 9.5 mg/dl (8.6-10.3); Creatinine Clr Calc Pharmacy 76.6 ml/min; Est GFR (African American) 89.8 ml/min; Est GFR (Non-African American) 77.5 ml/min; Potassium 4.1 mmol/L (3.5-5.1)
[2023-03-04 11:51] VITALS: PULSE 55; TEMP 97.9; O2SAT 97
--- NOTE | 2023-03-04 11:52 | Discharge Summary ---
Discharge Summary Date of Service March 04, 2023 Notes For Next Care Provider LUE numbness thought to be migraine variant vasospasm with trial of valproic acid Medication Changes From Visit -Started Valproic Acid 500mg BID for vasospasm, to be adjusted per neuro as OP Admission HPI Per Admitting Provider This is a 68-year-old female with PMH of recurrent pulmonary emboli in 2016 and 2021 on anticoagulation, hyperlipidemia, depression and other medical problems listed below who presents with left-sided tingling and numbness. Reports intermittent episodes of this over the past week and was admitted at [facility] earlier this month, where she was diagnosed with TIA. Had negative CT head, CTA head/neck, MRI head and echo with bubble study. LDL 96 and A1C 5.1. Neuro consult recommended increasing lipitor to 80mg and starting baby aspirin. Has been on Xarelto for recurrent pulmonary emboli but notably had recently reduced dose from 20 to 10 mg 1 day prior to TIA at the beginning of February. Had another similar episode on February 11 and was seen by PCP. Referred to neurology who she is scheduled to see tomorrow. Episodes start with LUE paresthesias and numbness in L arm that progress to L side of face. Endorses visual changes in lateral left eye described as "pixilated dots" with associated severe headache as well as difficulty getting words out. Also had brief feelings of nausea and chest heaviness during episode. Visual disturbances, chest heaviness, paresthesias all resolved within 20 minutes but headache remained. Denies any radhames weakness, facial droop, difficulty swallowing, confusion or ambulatory dysfunction. No recent infection although does have ongoing issues with L sinus pressure and congestion. No fever, chills, lightheadedness, SOB, vomiting, abdominal pain, dysuria, diarrhea or constipation. Current TIA regimen is Xarelto 10mg daily, aspirin 81mg daily and atorvastatin 80mg HS. Admission Exam Per Admitting Provider General Appearance:WD/WN, vitals as above, NAD, sitting up in bed, pleasant, conversing easily Head: normocephalic, atraumatic Eyes:normal inspection, PERRL, conjunctivae normal, anicteric sclerae ENT: external ear and nose normal, oropharynx normal Neck: normal visual inspection, trachea midline, no thyromegaly Respiratory:normal respiratory effort, lungs clear to auscultation, no wheeze, rales, rhonchi. No accessory muscle use Cardiovascular: regular rate, rhythm, no murmur, normal peripheral pulses, no BLE edema. Vessels: no JVD Chest: normal inspection of chest Abdomen/GI: normal bowel sounds, soft, nontender, no hepatosplenomegaly Extremities/Musculoskeletal: no cyanosis or clubbing, extremities motor strength 5/5 in BUE and BLE, no sensory deficit noted in LUE Neurologic: PERRL, EOMI, accommodation nl, no face palsy, no dysarthria, CN's II-XI intact bilaterally and moves all extremities Psychiatric:A+Ox3, anxious Skin: no rashes, normal color, warm/dry Principal Dx & Hospital Course #1 = Principal Diagnosis (1) Headache: (2) Stroke-like symptoms: (3) History of pulmonary embolism: (4) Depression: (5) HLD (hyperlipidemia): Plan Ms. Chew is a 68-year-old female with PMH of recurrent pulmonary emboli in 2016 and 2021 on anticoagulation, hyperlipidemia, depression and other medical problems listed below who presents with left-sided weakness. Patient has undergone expensive and repeated stroke/neurologic work up, which has not revealed any abnormalities that would contribute to degree of patient's symptoms. Neurology consulted with high suspicion for vasopasm, migraine variant. Patient started on Depakote 500mg BID and tolerated well, endorsing a good night sleep and resolution of pain. Patient discharged without any residual neuro deficit, PT/OT requirements, or acute concerns. Plan for OP follow up with Neuro. #Headache #Stroke-like symptoms -Marked by left sided hemiparesis with prompt resolution, up to 6-8 episodes a day; however, imaging with out vascular narrowing, infarct, or structural a bnormalities to explain degree of symptomatology Neurology on consult, suspect vasospam, migraine variant v possible seizure activity -Continue to monitor on telemetry -Neurochecks - Continue with 81 mg aspirin and Xarelto daily, with OP neurology follow up to consider future transition of asa to plavix, will defer given low suspicion of TIA and high risk of bleed - Start Valproic acid 500mg BID for vasospasm/migraine/partial seizure -Plan for OP neuro follow up with PA 2-3 weeks #Recurrent PE-Continue Xarelto #HLD-Continue statin Recurrent PE on Xarelto #Hyperglycemia-improved #Subclinical hypothyroidism- TSH 5.231, FT4 1.05 #Mood disorder at baseline- Continue citlopram #Past tobacco abuse CTM Discharge Exam Constitutional WD/WN, vitals as above Eyes PERRL, conjunctivae normal, anicteric sclerae ENMT external ear and nose normal, oropharynx normal Neck trachea midline, no thyromegaly Cardiovascular RRR, no murmur, no edema Gastrointestinal (Abdomen) normal bowel sounds, soft, nontender, no hepatosplenomegaly Skin no rashes, warm and dry Psychiatric A+Ox3, euthymic affect Updated Medication List Medication Instructions Recorded Confirmed Type citalopram 20 mg tablet 20 mg PO QAM 02/13/22 03/02/23 History acetaminophen 500 mg tablet 500 mg PO Q6H PRN Pain 03/02/23 03/02/23 History aspirin 81 mg capsule 81 mg PO DAILY 03/02/23 03/02/23 History atorvastatin 80 mg tablet 80 mg PO HS 03/02/23 03/02/23 History rivaroxaban 10 mg tablet (Xarelto) 10 mg PO PM 03/02/23 03/02/23 History divalproex 500 mg tablet,delayed 500 mg PO BID #60 tabs 03/04/23 Rx release (Depakote) Hospital Stay Data Consultations 03/02/23 20:34 ED Decision to Admit Stat 03/03/23 01:35 Consult Neurology Routine Diagnostic Imagining Performed 03/02/23 18:39 CT angio head w con Stat CT angio neck with con Stat CT head/brain wo con Stat 03/03/23 00:34 MR brain wo/w con Stat Pending Results Patient Have Any Pending Studies at Discharge: No Discharge Instructions Given to Patient (Per Discharging Provider) MEDICATION CHANGES: Started on Valproic acid 500mg twice a day. Continue all other medications as before. SUMMARY OF TEST RESULTS: You were admitted to the hospital for left sided numbness and a stroke alert was called. CT head, CTA head/neck and brain MRI did not show any evidence of acute intracranial pathology. Evaluated by neurology who feels these episodes are suspected vasospasms (migraine variant) and started on new medication above. PENDING TEST RESULTS: None RECOMMENDATIONS FOR FOLLOW-UP: Please follow-up with primary care provider as scheduled. Please follow-up with [facility] neurology in 3 weeks for follow-up. OTHER INSTRUCTIONS: Seek medical attention if you have: * temperature above 101 * chest pain or trouble breathing * abdominal pain, nausea, vomiting * diarrhea, dark stools or bloody stools * any unanswered questions or concerns Call 911 if symptoms are severe. Please take good care of yourself. It has been a pleasure taking care of you. Please take care of yourself. If you have any questions regarding your recent hospitalization please contact [facility] and request Annika Vencesist @ [phone]. Total Time Total Time Spent Total Time Spent (In Minutes): 50 Supervising Physician Co-Signing Physician Notes I have seen and discussed the case with the collaborating ROCK. I agree with the above H&P. I have reviewed and confirmed the patients medical history, the findings on physical examination, and the patients diagnosis and treatment plan with Thanh WILKERSON and agree with the information documented. Ms. Chew is a 68 year-old woman with history notable for recurrent PE on xarelto who is admitted due to recurrent stroke like symptoms +/- headache. All stroke/tia work up grossly unremarkable, including outpatient review of studies. Neurology suspicious for possible migraine variant vasospasm with trial of valproic acid. Since starting the medication, patient has experienced over 12 hours of relief with no reported episodes of left hemiparesis overnight into the morning. Patient discharged on valproic acid 500 mg bid with plans for close neuro follow up.
[2023-03-04 12:43] VITALS: BP 100/58
== END 2023-03-04 14:57 | disposition home or self-care (01) ==
LOC: ED 18:27 → 2W 18:27